=== PATIENT | male | born 1960 | race African-American/Black ===

== ENCOUNTER → 2016-11-06 | Outpatient (CLI) | payer MEDICARE, OTHER | LOC: RAD 07:59 | PROVIDERS: ATTEND Internal Medicine Nephrology | DX: R91.8 Other nonspecific abnormal finding of lung field (principal) | CPT/HCPCS: 71260; 82565 ==

== ENCOUNTER 2017-02-25 20:37 | Emergency (ER) | payer MEDICARE, OTHER ==
--- NOTE | 2017-02-25 23:03 | RADIOLOGY REPORT (SQ) ---
EXAM DESCRIPTION: HAND RIGHT 3 VIEWS COMPLETED DATE/TIME: 02/25/2017 10:51 pm REASON FOR STUDY: laceration COMPARISON: None. EXAM PARAMETERS: NUMBER OF VIEWS: Three views. TECHNIQUE: AP, lateral and oblique radiographic images acquired of the right hand. LIMITATIONS: None. FINDINGS: MINERALIZATION: Normal. BONES: No acute fracture or dislocation. No worrisome bone lesions. JOINTS: No effusions. SOFT TISSUES: No soft tissue swelling. No foreign body. OTHER: No other significant finding. IMPRESSION: NEGATIVE STUDY OF THE RIGHT HAND. NO RADIOGRAPHIC EVIDENCE OF ACUTE INJURY. TECHNICAL DOCUMENTATION: JOB ID: [id number] [employer]- All Rights Reserved
[2017-02-25] MEDS ORDERED: LIDOCAINE 1% INJ-PF (10 MG/ML) 30 ML SDV INJ ONE (23:21)
--- NOTE | 2017-02-25 23:22 | ER Document Report ---
ED Wound - General Chief Complaint: Laceration Stated Complaint: LACERATION TO RIGHT INDEX FINGER Time Seen by Provider: 02/25/17 23:09 Mode of Arrival: Ambulatory Information source: Patient TRAVEL OUTSIDE OF THE [place] IN LAST 30 DAYS: No - HPI Patient complains to provider of: Laceration Occurred: Just prior to arrival Onset/Duration: Sudden Quality of pain: Achy Severity: Mild Pain Level: 2 Context: Injury Skin Color: Normal Capillary refill: < 3 seconds Sensations intact: Yes Distal pulses present: Yes Associated Symptoms: None Notes: Patient is a 56-year-old male who presents to the emergency room complaining of laceration to the dorsal surface of his right second finger that occurred just prior to arrival, states he was washing dishes when a glass broke while in his hand causing the injury, patient reports his last tetanus shot was sometime in the fall 2015, he denies pain or injury elsewhere - Related Data Allergies/Adverse Reactions: ciprofloxacin [From Cipro] Allergy (Severe, Verified 02/25/17 20:42) Anaphylaxis Past Medical History - General Information source: Patient - Social History Smoking Status: Never Smoker Chew tobacco use (# tins/day): No Frequency of alcohol use: None Drug Abuse: None Family History: Reviewed & Not Pertinent Patient has suicidal ideation: No Patient has homicidal ideation: No - Past Medical History Cardiac Medical History: Reports: Hx Hypertension Denies: Hx Atrial Fibrillation, Hx Coronary Artery Disease, Hx Heart Attack Pulmonary Medical History: Denies: Hx Asthma, Hx Bronchitis, Hx COPD, Hx Pneumonia Neurological Medical History: Denies: Hx Cerebrovascular Accident, Hx Seizures Endocrine Medical History: Reports: Hx Hypothyroidism Renal/ Medical History: Reports: Hx End Stage Renal Disease. Denies: Hx Peritoneal Dialysis Malignancy Medical History: Reports Hx Renal (Kidney) Cancer - right side - cleared from cancer after nephrectomy Musculoskeltal Medical History: Reports Hx Arthritis - KNEES Traumatic Medical History: Reports: Hx Fractures Past Surgical History: Reports: Hx Kidney (Renal Surgery) - right nephrectomy, Hx Orthopedic Surgery - ankle - Immunizations Immunizations up to date: Yes Hx Diphtheria, Pertussis, Tetanus Vaccination: Yes Review of Systems - Review of Systems Constitutional: No symptoms reported EENT: No symptoms reported Cardiovascular: No symptoms reported Respiratory: No symptoms reported Gastrointestinal: No symptoms reported Genitourinary: No symptoms reported Male Genitourinary: No symptoms reported Musculoskeletal: No symptoms reported Skin: See HPI Hematologic/Lymphatic: No symptoms reported Neurological/Psychological: No symptoms reported -: Yes All other systems reviewed and negative Physical Exam - Vital signs Vitals: Temp Pulse Resp BP Pulse Ox 97.9 F 73 18 167/114 H 100 02/25/17 20:43 02/25/17 20:43 02/25/17 20:43 02/25/17 20:43 02/25/17 20:43 - Notes Notes: - General General appearance: Appears well, Alert In distress: None - HEENT Head: Normocephalic, Atraumatic Eyes: Normal Conjunctiva: Normal Extraocular movements intact: Yes Eyelashes: Normal Pupils: PERRL - Respiratory Respiratory status: No respiratory distress - Cardiovascular Rhythm: Regular - Abdominal Inspection: Normal - Back Back: Normal - Extremities General upper extremity: Dorsal surface of right second finger has a skin flap measuring 1 cm x 1 cm just distal to the MCP, distal sensation and motor is intact, patient has full flexion and extension, capillary refill is less than 3 seconds General lower extremity: Normal inspection - Neurological Neuro grossly intact: Yes Orientation: AAOx4 [place] Coma Scale Eye Opening: Spontaneous [place] Coma Scale Verbal: Oriented [place] Coma Scale Motor: Obeys Commands [place] Coma Scale Total: 15 - Psychological Associated symptoms: Normal affect, Normal mood - Skin Skin Temperature: Warm Skin Moisture: Dry Skin Color: Normal Course - Re-evaluation Re-evalutation: 02/26/17 00:00 Patient's wound was repaired using sutures, he was started on prophylactic antibiotics and given wound care instructions as well as instructions for follow -up, advised to return if any additional concerns, patient acknowledges understanding and agreement with this plan - Vital Signs Vital signs: Temp Pulse Resp BP Pulse Ox 97.4 F 62 18 185/123 H 100 02/25/17 23:53 02/25/17 23:53 02/25/17 23:53 02/25/17 23:53 02/25/17 23:53 Procedures - Laceration/Wound Repair Right Hand 2nd digit Time completed: 00:01 Wound length (cm): 2 Wound's Depth, Shape: Flap Laceration pre-procedure: Sterile PPE donned, Chloraprep applied, Sterile drapes applied Anesthetic type: 1% Lidocaine Volume Anesthetic (mLs): 2 Wound explored: Clean Irrigated w/ Saline (mLs): 400 Wound Repaired With: Sutures Suture Size/Type: 5:0, Nylon Number of Sutures: 4 Layer Closure?: No Post-procedure wound care: Sterile dressing applied Post-procedure NV exam normal: Yes Complications: No Hands back picture: 1 - 2 cm laceration Discharge - Discharge Clinical Impression: Finger laceration Qualifiers: Encounter type: initial encounter Finger: index finger Damage to nail status: without damage Foreign body presence: with foreign body Laterality: right Qualified Code(s): S61.220A - Laceration with foreign body of right index finger without damage to nail, initial encounter Condition: Stable Disposition: HOME, SELF-CARE Instructions: Antibiotic Ointment Protection ([facility]), Laceration Care ([facility]), Oral Narcotic Medication ([facility]), Prophylactic Antibiotic ([facility]), Soap Cleansing ( [facility]) Additional Instructions: Follow up with your primary care provider in 2-3 days for wound check. Keep wound clean and covered with antibiotic ointment and a clean dressing. Gently rinse with warm water and soap twice daily. Sutures to be removed in 7-10 days. Return to the emergency room immediately if symptoms worsen or any additional concerns. Prescriptions: Cephalexin Monohydrate [Keflex 500 mg Capsule] 500 mg PO BID #20 capsule
[2017-02-25] MEDS ORDERED: CEPHALEXIN 500 MG CAPSULE PO ONE (23:42)
[2017-02-25 23:55] VITALS: BP 185/123
== END 2017-02-25 23:53 | disposition home or self-care (01) ==
LOC: ER 20:37
PROC: 0HQFXZZ Repair Right Hand Skin, External Approach (ICD-10-PCS; principal; 2017-02-25)
DX: S61.220A Laceration with foreign body of right index finger without damage to nail, initial encounter (principal); W25.XXXA Contact with sharp glass, initial encounter; Y93.G1 Activity, food preparation and clean up; Y92.009 Unspecified place in unspecified non-institutional (private) residence as the place of occurrence of the external cause; I10 Essential (primary) hypertension; Z88.1 Allergy status to other antibiotic agents; Z90.5 Acquired absence of kidney; Z85.528 Personal history of other malignant neoplasm of kidney
CPT/HCPCS: 99283; 73130; 12001; A9270; J3490

== ENCOUNTER 2017-03-04 11:47 | Emergency (ER) | payer MEDICARE, OTHER ==
[2017-03-04 11:52] VITALS: BP 146/107
--- NOTE | 2017-03-04 12:02 | ER Document Report ---
HPI - HPI Patient complains to provider of: suture removal Onset: Last week Severity: Mild Pain Level: 1 Context: Patient had stitches placed to right index finger 1 week ago and is here for removal. Denies any problems with the wound site. Associated Symptoms: None Exacerbated by: Movement Relieved by: Denies - ROS ROS below otherwise negative: Yes Systems Reviewed and Negative: Yes All other systems reviewed and negative - CONSTITUTIONAL Constitutional: DENIES: Fever - EENT EENT: DENIES: Congestion - NEURO Neurology: DENIES: Headache - CARDIOVASCULAR Cardiovascular: DENIES: Chest pain - RESPIRATORY Respiratory: DENIES: Trouble Breathing - GASTROINTESTINAL Gastrointestinal: DENIES: Abdominal Pain - MUSCULOSKELETAL Musculoskeletal: REPORTS: Extremity pain - mild pain to right index site - DERM Skin Color: Normal Past Medical History - General Information source: Patient - Social History Smoking Status: Never Smoker Frequency of alcohol use: None Drug Abuse: None Lives with: Family Family History: Reviewed & Not Pertinent Patient has suicidal ideation: No Patient has homicidal ideation: No - Past Medical History Cardiac Medical History: Reports: Hx Hypertension Endocrine Medical History: Reports: Hx Hypothyroidism Renal/ Medical History: Reports: Hx End Stage Renal Disease Malignancy Medical History: Reports Hx Renal (Kidney) Cancer - right side - cleared from cancer after nephrectomy Musculoskeltal Medical History: Reports Hx Arthritis - KNEES Traumatic Medical History: Reports: Hx Fractures Past Surgical History: Reports: Hx Kidney (Renal Surgery) - right nephrectomy, Hx Orthopedic Surgery - ankle - Immunizations Immunizations up to date: Yes Hx Diphtheria, Pertussis, Tetanus Vaccination: Yes Vertical Provider Document - CONSTITUTIONAL Agree With Documented VS: Yes Exam Limitations: No Limitations General Appearance: WD/WN, No Apparent Distress - INFECTION CONTROL TRAVEL OUTSIDE OF THE [place] IN LAST 30 DAYS: No - HEENT HEENT: Atraumatic, Normocephalic - RESPIRATORY Respiratory: Breath Sounds Normal, No Respiratory Distress O2 Sat by Pulse Oximetry: 98 - CARDIOVASCULAR Cardiovascular: Regular Rate, Regular Rhythm - MUSCULOSKELETAL/EXTREMETIES Musculoskeletal/Extremeties: MAEW, No Edema - NEURO Level of Consciousness: Awake, Alert, Appropriate - DERM Integumentary: Warm, Dry, Laceration - No signs and symptoms of infection noted to repair laceration site to right index finger Course - Re-evaluation Re-evalutation: 03/04/17 12:04 4 sutures removed without difficulty from right index finger. Patient tolerated procedure well - Vital Signs Vital signs: Temp Pulse Resp BP Pulse Ox 98.4 F 74 14 146/107 H 98 03/04/17 11:49 03/04/17 11:49 03/04/17 11:49 03/04/17 11:49 03/04/17 11:49 Discharge - Discharge Clinical Impression: Visit for suture removal Condition: Good Disposition: HOME, SELF-CARE Additional Instructions: Keep area clean and dry Follow-up with your primary care physician or return if any problems
== END 2017-03-04 12:10 | disposition home or self-care (01) ==
LOC: ER 11:47
DX: Z48.02 Encounter for removal of sutures (principal)

== ENCOUNTER 2017-08-03 06:52 | Emergency (ER) | payer MEDICARE, OTHER ==
[2017-08-03 07:30] LABS: PROTHROMBIN TIME 14.1 SEC (11.4-15.4)
[2017-08-03 07:32] LABS: ABSOLUTE LYMPHOCYTES (AUTO) 0.4 10^3/uL (0.5-4.7); ABSOLUTE MONOCYTES (AUTO) 1.1 10^3/uL (0.1-1.4); ABSOLUTE NEUT (AUTO) 5.4 10^3/uL (1.7-8.2); BASOPHILS % (AUTO) 0.7 % (0-2); EOSINOPHILS % (AUTO) 0.1 % (0-6); HEMATOCRIT 30.9 % (37.9-51.0); HEMOGLOBIN 10.7 g/dL (13.5-17.0); HGB HCT DIFFERENCE 1.2; LYMPHOCYTES % (AUTO) 5.7 % (13-45); MEAN CORPUSCULAR HEMOGLOBIN 33.5 pg (27.0-33.4); MEAN CORPUSCULAR HGB CONC 34.5 g/dL (32.0-36.0); MEAN CORPUSCULAR VOLUME 97 fl (80-97); MONOCYTES % (AUTO) 15.2 % (3-13); RED BLOOD COUNT 3.18 10^6/uL (4.35-5.55); SEGMENTED NEUTROPHILS % (AUTO) 78.3 % (42-78); WHITE BLOOD COUNT 6.9 10^3/uL (4.0-10.5)
[2017-08-03 07:42] LABS: ALANINE AMINOTRANSFERASE 48 U/L (21-72); ALBUMIN 4.3 g/dL (3.5-5.0); ALKALINE PHOSPHATASE 56 U/L (38-126); ANION GAP 18 (5-19); ASPARTATE AMINO TRANSFERASE 67 U/L (17-59); BILIRUBIN,DIRECT 0.7 mg/dL (0.0-0.4); BILIRUBIN,TOTAL 0.9 mg/dL (0.2-1.3); BLOOD UREA NITROGEN 32 mg/dL (7-20); CALCIUM 9.9 mg/dL (8.4-10.2); CARBON DIOXIDE 23 mmol/L (22-30); CHLORIDE 98 mmol/L (98-107); CREATININE RESULT 11.19 mg/dL (0.52-1.25); GLUCOSE 102 mg/dL (75-110); SODIUM 138.7 mmol/L (137-145); TOTAL PROTEIN 6.5 g/dL (6.3-8.2)
[2017-08-03 07:51] LABS: VENOUS BLOOD HCO3 26.3 mmol/L (20-32); VENOUS BLOOD PH 7.48 (7.30-7.42)
--- NOTE | 2017-08-03 08:02 | ER Document Report ---
ED General - General Mode of Arrival: Ambulatory Information source: Patient, Emergency Med Personnel TRAVEL OUTSIDE OF THE [place] IN LAST 30 DAYS: No - HPI Onset: Other - x3 weeks <MAYRA LAYTON - Last Filed: 08/03/17 10:11> <MARY DE LEÓN - Last Filed: 08/03/17 11:14> - General Chief Complaint: Weakness Stated Complaint: GENERAL WEAKNESS Time Seen by Provider: 08/03/17 07:55 Notes: Patient is a 57-year-old male who presents to the emergency department today with complaints of flu-like symptoms including a cough, nasal congestion, feelings of being hot and cold, nausea and vomiting. Patient states he just recently returned from visiting family in [place] for 3 weeks. Patient has a history of renal cancer status post right sided nephrectomy. Patient states he does not remember how he got to his dialysis appointment today and he states he only vaguely remembers the EMS transport from dialysis to here. (MAYRA LAYTON) - Related Data Allergies/Adverse Reactions: ciprofloxacin [From Cipro] Allergy (Severe, Verified 02/25/17 20:42) Anaphylaxis Past Medical History - General Information source: Patient - Social History Smoking Status: Unknown if Ever Smoked Cigarette use (# per day): No Frequency of alcohol use: None Drug Abuse: None Lives with: Family Family History: Reviewed & Not Pertinent Patient has suicidal ideation: No Patient has homicidal ideation: No - Past Medical History Cardiac Medical History: Reports: Hx Hypertension Endocrine Medical History: Reports: Hx Hypothyroidism Renal/ Medical History: Reports: Hx End Stage Renal Disease Malignancy Medical History: Reports Hx Renal (Kidney) Cancer - right side - cleared from cancer after nephrectomy Musculoskeltal Medical History: Reports Hx Arthritis - KNEES Traumatic Medical History: Reports: Hx Fractures Past Surgical History: Reports: Hx Kidney (Renal Surgery) - right nephrectomy, Hx Orthopedic Surgery - ankle - Immunizations Immunizations up to date: Yes Hx Diphtheria, Pertussis, Tetanus Vaccination: Yes <MAYRA LAYTON - Last Filed: 08/03/17 10:11> Review of Systems - Review of Systems Constitutional: See HPI, Chills, Fever EENT: See HPI, Nose congestion Cardiovascular: No symptoms reported Respiratory: See HPI, Cough Gastrointestinal: See HPI, Nausea, Vomiting Genitourinary: No symptoms reported Male Genitourinary: No symptoms reported Musculoskeletal: No symptoms reported Skin: No symptoms reported Hematologic/Lymphatic: No symptoms reported Neurological/Psychological: No symptoms reported -: Yes All other systems reviewed and negative <KINJALMAYRA - Last Filed: 08/03/17 10:11> Physical Exam <KINJALMAYRA - Last Filed: 08/03/17 10:11> <MARY DE LEÓN - Last Filed: 08/03/17 11:14> - Vital signs Vitals: Resp BP Pulse Ox 14 144/107 H 98 08/03/17 07:08 08/03/17 07:08 08/03/17 07:08 - Notes Notes: Physical Exam: General: Alert, appears well. HEENT: Normocephalic. Atraumatic. PERRL. Extraocular movements intact. Oropharynx clear. Dry mucous membranes. Tongue is coated. Neck: Supple. Non-tender. Respiratory: No respiratory distress. Coarse breath sounds on the left consistent with extensive smoking history. Cardiovascular: Regular rate and rhythm. Abdominal: Normal Inspection. Non-tender. No distension. Normal Bowel Sounds. Back: Non-tender. No deformity or step off. Extremities: Moves all four extremities. Upper extremities: Normal inspection. Normal ROM. Lower extremities: Normal inspection. No edema. Normal ROM. Neurological: Normal cognition. AAOx4. Normal speech. Psychological: Normal affect. Normal Mood. Skin: Warm. Dry. Normal color. (MAYRA LAYTON) Course - Laboratory Result Diagrams: 08/03/17 07:10 08/03/17 07:10 <MAYRA LAYTON - Last Filed: 08/03/17 10:11> - Laboratory Result Diagrams: 08/03/17 07:10 08/03/17 07:10 - EKG Interpretation by [facility] EKG shows normal: Sinus rhythm, [place], QRS Complexes, ST-T Waves. abnormal: Intervals - Prolonged QT interval Voltage: Consistant with LVH When compared to previous EKG there are: No significant change <MARY DE LEÓN - Last Filed: 08/03/17 11:14> - Re-evaluation Re-evalutation: 08/03/17 11:09 The patient was supposed to have dialysis today due to the holiday scheduling. His last dialysis was Friday 2 days ago. He will be able to go back to dialysis on Friday. As he makes plenty of urine and does not get into congestive heart failure, there is no concern about him going 4 days between treatments. (MARY DE LEÓN) - Vital Signs Vital signs: Temp Pulse Resp BP Pulse Ox 99.8 F 18 148/94 H 98 08/03/17 10:03 08/03/17 10:01 08/03/17 10:01 08/03/17 10:01 - Laboratory Laboratory results interpreted by me: 08/03/17 08/03/17 08/03/17 07:10 07:10 07:25 RBC 3.18 L Hgb 10.7 L Hct 30.9 L MCH 33.5 H Plt Count 137 L Seg Neutrophils % 78.3 H Lymphocytes % 5.7 L Monocytes % 15.2 H Absolute Lymphocytes 0.4 L VBG pH 7.48 H BUN 32 H Creatinine 11.19 H Est GFR ( Amer) 6 L Est GFR (Non-Af Amer) 5 L Direct Bilirubin 0.7 H AST 67 H Urine Protein Urine Blood Urine Nitrite Ur Leukocyte Esterase Urine Ascorbic Acid 08/03/17 08:10 RBC Hgb Hct MCH Plt Count Seg Neutrophils % Lymphocytes % Monocytes % Absolute Lymphocytes VBG pH BUN Creatinine Est GFR ( Amer) Est GFR (Non-Af Amer) Direct Bilirubin AST Urine Protein 100 H Urine Blood MODERATE H Urine Nitrite POSITIVE H Ur Leukocyte Esterase TRACE H Urine Ascorbic Acid 20 H Discharge <MAYRA LAYTON - Last Filed: 08/03/17 10:11> <MARY DE LEÓN - Last Filed: 08/03/17 11:14> - Discharge Clinical Impression: Viral upper respiratory tract infection with cough, Nausea, vomiting and diarrhea, ESRD (end stage renal disease) Condition: Stable Disposition: HOME, SELF-CARE Additional Instructions: Upper Respiratory Illness You have a viral infection of the respiratory passages -- a "cold." This common infection causes nasal congestion, drainage, and often sore throat and cough. It is caused by a virus and is highly contagious. The disease usually lasts a week or more, though the worst symptoms are usually over in 3 or 4 days. There is no "cure" for the viral infection -- it must run its course. If there is a complication, such as bacterial infection in the nose, sinuses, middle ear, or bronchial tubes, antibiotics may be required, but antibiotics won 't affect the virus. If you smoke, you should STOP!! Drink plenty of fluids. A humidifier may help. An expectorant medication or decongestant may make you more comfortable. Use acetaminophen or ibuprofen for fever or aches. See the doctor if fever persists over two or three days, if there is any significant worsening of your symptoms, or if you simply fail to improve as expected. Gastroenteritis You most likely have gastroenteritis. This is an irritation of the stomach and intestinal tract. It's usually caused by a virus, but can also be caused by bacteria, toxins that cause food poisoning, or excessive alcohol intake. Symptoms may include fever, painful abdominal cramps, nausea, vomiting , and diarrhea. Start with small amounts (two to six ounces) of clear liquids (soft drinks , herb teas, broth, etc). Try to take fluids frequently even if you are vomiting, to prevent dehydration. When liquids are being consumed successfully , advance to small amounts of bland food (mashed potato, toast) for 6 - 12 hours. Gastroenteritis rarely requires medication. It goes away by itself. Use good handwashing so you don't spread germs. Wash underwear in very hot water. If symptoms are severe, talk to the doctor. Call your physician if blood appears in your vomitus or stool, if vomiting lasts longer than 24 hours, if the abdominal pain worsens or becomes localized to one area, or if you develop high fever. Urinary Tract Infection Your evaluation indicates that you have a urinary tract infection. This is due to germs growing in the bladder. This is a common problem. This infection usually responds quickly to antibiotics. Your antibiotic should be taken exactly as prescribed. Drink plenty of fluids -- three to four quarts a day. Occasionally, a bladder anesthetic will be prescribed to help stop the feeling of urgency until the antibiotic has a chance to clear the infection. This may cause your urine to be dark orange. Certain urine infections require a culture. If the doctor obtained a culture, the results will be back in two days. You should call to see if a change in treatment is needed. A repeat urinalysis after you finish treatment is often recommended. The physician will let you know if further testing is required. Call the doctor if you develop fever, chills, flank pain, inability to urinate, or blood in the urine. //////////////////////////////////////////////////////////////////////////////// //////////////////////////////////////////////////////////////////////////////// ////////////////// Take medications as prescribed. Get plenty of rest. Try Robitussin-DM to help suppress your cough. Follow-up with your doctor in the next few days if not improving. RETURN TO THE EMERGENCY ROOM IF ANY NEW OR WORSENING SYMPTOMS. Prescriptions: Sulfamethoxazole/Trimethoprim [Septra-Ds 800-160 mg Tablet] 1 tab PO BID #10 tablet Scribe Attestation: 08/03/17 11:08 I personally performed the services described in the documentation, reviewed and edited the documentation which was dictated to the scribe in my presence, and it accurately records my words and actions. (MARY DE LEÓN) Scribe Documentation - Scribe Written by Sara:: Sara Acosta, 08/03/2017 0855 acting as scribe for :: Raffi <MAYRA LAYTON - Last Filed: 08/03/17 10:11>
[2017-08-03] MEDS ORDERED: NORMAL SALINE IV ONE (08:04)
[2017-08-03 08:39] LABS: APPEARANCE,URINE SLIGHTLY-CLOUDY; BILIRUBIN,URINE NEGATIVE (NEGATIVE); GLUCOSE, URINE NEGATIVE (NEGATIVE); KETONES,URINE NEGATIVE (NEGATIVE); LEUKOCYTE ESTERASE,URINE TRACE (NEGATIVE); NITRITE,URINE POSITIVE (NEGATIVE); PROTEIN,URINE 100 mg/dL (NEGATIVE); URINE SPECIFIC GRAVITY 1.013; UROBILINOGEN,URINE NEGATIVE mg/dL (<2.0)
--- NOTE | 2017-08-03 08:40 | EKG REPORT ---
SEVERITY:- ABNORMAL ECG - SINUS RHYTHM PROBABLE LVH WITH SECONDARY REPOL ABNRM BORDERLINE PROLONGED QT INTERVAL : Confirmed by: Costa Pryor MD 03-Aug-2017 08:40:11
[2017-08-03] MEDS ORDERED: SULFAMETHOXAZOLE/TRIMETHOPRIM 800-160 MG TABLET PO ONE (09:54)
[2017-08-03 11:16] VITALS: BP 143/92
== END 2017-08-03 11:24 | disposition home or self-care (01) ==
LOC: ER 06:52
DX: J06.9 Acute upper respiratory infection, unspecified (principal); R05 Cough; R11.2 Nausea with vomiting, unspecified; R19.7 Diarrhea, unspecified; N18.6 End stage renal disease; R53.1 Weakness; R09.81 Nasal congestion; Z85.528 Personal history of other malignant neoplasm of kidney; Z90.5 Acquired absence of kidney; Z99.2 Dependence on renal dialysis
CPT/HCPCS: 93005; 99285; 96360; 36415; 87040; 87045; 87086; 89055; 87205; 85025; 85610; 82272; 87088; 80053; 81001; 87493; 82803; 83605; 87804; 93010; A9270; J7030

== ENCOUNTER → 2018-02-26 | Outpatient (CLI) | payer MEDICARE, OTHER ==
[2018-02-26 08:57] LABS: APPEARANCE,URINE CLEAR; BILIRUBIN,URINE NEGATIVE (NEGATIVE); COLOR,URINE YELLOW; GLUCOSE, URINE NEGATIVE (NEGATIVE); KETONES,URINE NEGATIVE (NEGATIVE); LEUKOCYTE ESTERASE,URINE NEGATIVE (NEGATIVE); NITRITE,URINE NEGATIVE (NEGATIVE); PROTEIN,URINE NEGATIVE (NEGATIVE); UROBILINOGEN,URINE NEGATIVE mg/dL (<2.0)
[2018-02-26 08:58] LABS: HEMATOCRIT 38.6 % (37.9-51.0); HEMOGLOBIN 13.1 g/dL (13.5-17.0); MEAN CORPUSCULAR HEMOGLOBIN 32.4 pg (27.0-33.4); MEAN CORPUSCULAR VOLUME 95 fl (80-97); PLATELET COUNT 198 10^3/uL (150-450); RED BLOOD COUNT 4.05 10^6/uL (4.35-5.55); RED CELL DISTRIBUTION WIDTH 13.9 % (11.5-14.0); WHITE BLOOD COUNT 5.4 10^3/uL (4.0-10.5)
[2018-02-26 09:23] LABS: ANION GAP 11 (5-19); BLOOD UREA NITROGEN 20 mg/dL (7-20); CARBON DIOXIDE 27 mmol/L (22-30); CHLORIDE 108 mmol/L (98-107); GLUCOSE 162 mg/dL (75-110); PHOSPHORUS 3.5 mg/dL (2.5-4.5); POTASSIUM 4.2 mmol/L (3.6-5.0); SODIUM 146.4 mmol/L (137-145)
[2018-02-26 09:24] LABS: ABSOLUTE LYMPHOCYTES# (MANUAL) 0.3 10^3/uL (0.5-4.7); ABSOLUTE MONOCYTES # (MANUAL) 0.2 10^3/uL (0.1-1.4); ABSOLUTE NEUTROPHILS# (MANUAL) 4.7 10^3/uL (1.7-8.2); BAND NEUTROPHILS % (MANUAL) 4 % (3-5); BASOPHILS % (MANUAL) 1 % (0-2); EOSINOPHILS % (MANUAL) 3 % (0-6); LYMPHOCYTES % (MANUAL) 5 % (13-45); MONOCYTES % (MANUAL) 4 % (3-13); PLATELET COMMENT ADEQUATE; RBC MORPHOLOGY COMMENT NORMO-CYTIC/CHROMIC; SEGMENTED NEUTROPHILS % (MAN) 83 % (42-78); TOTAL CELLS COUNTED 100; TOXIC GRANULATION SLIGHT
[2018-02-28 10:16] LABS: TACROLIMUS (FK506) 4.6 ng/mL (2.0-20.0)
== END ==
LOC: LAB 08:21
PROVIDERS: ATTEND Surgery
DX: N18.9 Chronic kidney disease, unspecified (principal); Z94.0 Kidney transplant status
CPT/HCPCS: 36415; 80048; 80197; 81001; 83735; 84100; 85025; 87799

== ENCOUNTER → 2018-04-22 | Outpatient (CLI) | payer MEDICARE, OTHER ==
[2018-04-22 09:10] LABS: APPEARANCE,URINE CLEAR; BILIRUBIN,URINE NEGATIVE (NEGATIVE); COLOR,URINE STRAW; GLUCOSE, URINE NEGATIVE (NEGATIVE); KETONES,URINE NEGATIVE (NEGATIVE); LEUKOCYTE ESTERASE,URINE TRACE (NEGATIVE); NITRITE,URINE NEGATIVE (NEGATIVE); PROTEIN,URINE NEGATIVE (NEGATIVE); URINE SPECIFIC GRAVITY 1.009; UROBILINOGEN,URINE NEGATIVE mg/dL (<2.0)
[2018-04-22 09:29] LABS: HEMATOCRIT 33.3 % (37.9-51.0); HEMOGLOBIN 11.3 g/dL (13.5-17.0); MEAN CORPUSCULAR HEMOGLOBIN 33.1 pg (27.0-33.4); MEAN CORPUSCULAR VOLUME 97 fl (80-97); PLATELET COUNT 165 10^3/uL (150-450); RED BLOOD COUNT 3.43 10^6/uL (4.35-5.55); RED CELL DISTRIBUTION WIDTH 15.7 % (11.5-14.0); WHITE BLOOD COUNT 5.2 10^3/uL (4.0-10.5)
[2018-04-22 09:44] LABS: ANION GAP 5 (5-19); BLOOD UREA NITROGEN 21 mg/dL (7-20); CALCIUM 9.3 mg/dL (8.4-10.2); CARBON DIOXIDE 30 mmol/L (22-30); CHLORIDE 109 mmol/L (98-107); GLUCOSE 88 mg/dL (75-110); PHOSPHORUS 2.8 mg/dL (2.5-4.5); POTASSIUM 3.9 mmol/L (3.6-5.0); SODIUM 143.5 mmol/L (137-145)
[2018-04-22 09:55] LABS: ABSOLUTE LYMPHOCYTES# (MANUAL) 0.2 10^3/uL (0.5-4.7); ABSOLUTE MONOCYTES # (MANUAL) 0.1 10^3/uL (0.1-1.4); ABSOLUTE NEUTROPHILS# (MANUAL) 4.8 10^3/uL (1.7-8.2); BASOPHILS % (MANUAL) 0 % (0-2); EOSINOPHILS % (MANUAL) 2 % (0-6); LYMPHOCYTES % (MANUAL) 3 % (13-45); MONOCYTES % (MANUAL) 2 % (3-13); SEGMENTED NEUTROPHILS % (MAN) 93 % (42-78); TOTAL CELLS COUNTED 100
[2018-04-22 09:57] LABS: ANISOCYTOSIS SLIGHT; OVALOCYTES SLIGHT; POIKILOCYTOSIS SLIGHT
[2018-04-22 09:58] LABS: PLATELET COMMENT ADEQUATE; PLATELET LARGE PRESENT
== END ==
LOC: LAB 08:59
PROVIDERS: ATTEND Surgery
DX: N18.9 Chronic kidney disease, unspecified (principal); Z94.0 Kidney transplant status
CPT/HCPCS: 36415; 80048; 80197; 81001; 83735; 84100; 85025; 87799

== ENCOUNTER 2018-05-14 19:51 | Emergency (ER) | payer MEDICARE, OTHER ==
[2018-05-14] MEDS ORDERED: RINGERS SOLUTION,LACTATED 1,000 ML IV ONE (20:49)
[2018-05-14 21:16] LABS: HEMATOCRIT 34.9 % (37.9-51.0); HEMOGLOBIN 12.2 g/dL (13.5-17.0); MEAN CORPUSCULAR HGB CONC 34.8 g/dL (32.0-36.0); MEAN CORPUSCULAR VOLUME 98 fl (80-97); PLATELET COUNT 178 10^3/uL (150-450); RED BLOOD COUNT 3.58 10^6/uL (4.35-5.55); RED CELL DISTRIBUTION WIDTH 14.8 % (11.5-14.0); WHITE BLOOD COUNT 5.6 10^3/uL (4.0-10.5)
[2018-05-14 21:27] LABS: ALANINE AMINOTRANSFERASE 20 U/L (21-72); ALBUMIN 4.4 g/dL (3.5-5.0); ALKALINE PHOSPHATASE 67 U/L (38-126); ANION GAP 9 (5-19); ASPARTATE AMINO TRANSFERASE 41 U/L (17-59); BILIRUBIN,DIRECT 0.4 mg/dL (0.0-0.4); BILIRUBIN,TOTAL 0.7 mg/dL (0.2-1.3); BLOOD UREA NITROGEN 16 mg/dL (7-20); CALCIUM 9.7 mg/dL (8.4-10.2); CARBON DIOXIDE 27 mmol/L (22-30); CHLORIDE 106 mmol/L (98-107); GLUCOSE 105 mg/dL (75-110); POTASSIUM 3.6 mmol/L (3.6-5.0); SODIUM 141.7 mmol/L (137-145); TOTAL PROTEIN 8.4 g/dL (6.3-8.2)
[2018-05-14 21:36] LABS: ABSOLUTE LYMPHOCYTES# (MANUAL) 0.1 10^3/uL (0.5-4.7); ABSOLUTE MONOCYTES # (MANUAL) 0.2 10^3/uL (0.1-1.4); ABSOLUTE NEUTROPHILS# (MANUAL) 4.9 10^3/uL (1.7-8.2); BASOPHILS % (MANUAL) 0 % (0-2); EOSINOPHILS % (MANUAL) 6 % (0-6); LYMPHOCYTES % (MANUAL) 1 % (13-45); MONOCYTES % (MANUAL) 4 % (3-13); SEGMENTED NEUTROPHILS % (MAN) 88 % (42-78); TOTAL CELLS COUNTED 100
[2018-05-14 21:38] LABS: ANISOCYTOSIS SLIGHT; PLATELET COMMENT ADEQUATE
[2018-05-14] MEDS ORDERED: ACETAMINOPHEN 325 MG TABLET PO ONE (22:12)
[2018-05-14 22:33] LABS: A TYPE INFLUENZA AG NEGATIVE (NEGATIVE); B INFLUENZA AG NEGATIVE (NEGATIVE)
--- NOTE | 2018-05-14 22:33 | RADIOLOGY REPORT (SQ) ---
EXAM DESCRIPTION: XR CHEST 1 VIEW COMPLETED DATE/TME: 05/14/2018 20:48 CLINICAL HISTORY: fever COMPARISON: None FINDINGS: Cardiac silhouette is within normal limits. Aorta is tortuous. EKG leads project over the chest. There is no focal parenchymal or pleural disease. There is no acute osseous process visualized. IMPRESSION: No evidence of acute cardiopulmonary disease.
[2018-05-14 23:12] LABS: APPEARANCE,URINE CLEAR; BILIRUBIN,URINE NEGATIVE (NEGATIVE); COLOR,URINE YELLOW; GLUCOSE, URINE NEGATIVE (NEGATIVE); KETONES,URINE NEGATIVE (NEGATIVE); LEUKOCYTE ESTERASE,URINE NEGATIVE (NEGATIVE); NITRITE,URINE NEGATIVE (NEGATIVE); PROTEIN,URINE >=500 mg/dL (NEGATIVE); URINE SPECIFIC GRAVITY 1.017; UROBILINOGEN,URINE NEGATIVE mg/dL (<2.0)
--- NOTE | 2018-05-14 23:54 | ER Document Report ---
ED General - General Chief Complaint: Pain All Over Stated Complaint: Body aches Time Seen by Provider: 05/14/18 20:45 Notes: Patient is a 57-year-old male with a past medical history of hypertension, chronic kidney disease status post kidney transplant in October 2017 who presents with 3 days of body aches, fatigue, headache, diaphoresis and chills. He has not had a recorded fever at home contrary to triage assessment. Nor does he have acute fever here in the emergency department. He states that he contacted his primary doctor, was referred to the emergency department. States he been trying Tylenol with no significant improvement of his symptoms. Nothing worsened his symptoms. He is uncertain of whether or not he has had sick contacts. He denies a history of similar symptoms in the past. He denies any focal weakness, numbness, confusion diarrhea, but has had some nausea and vomiting. TRAVEL OUTSIDE OF THE [place] IN LAST 30 DAYS: No - Related Data Allergies/Adverse Reactions: ciprofloxacin [From Cipro] Allergy (Severe, Verified 02/25/17 20:42) Anaphylaxis Past Medical History - General Information source: Patient - Social History Smoking Status: Never Smoker Frequency of alcohol use: None Drug Abuse: None Lives with: Alone Family History: Reviewed & Not Pertinent Patient has suicidal ideation: No Patient has homicidal ideation: No - Past Medical History Cardiac Medical History: Reports: Hx Hypertension Denies: Hx Atrial Fibrillation, Hx Coronary Artery Disease, Hx Heart Attack Pulmonary Medical History: Denies: Hx Asthma, Hx Bronchitis, Hx COPD, Hx Pneumonia Neurological Medical History: Denies: Hx Cerebrovascular Accident, Hx Seizures Endocrine Medical History: Reports: Hx Hypothyroidism Renal/ Medical History: Reports: Hx End Stage Renal Disease. Denies: Hx Peritoneal Dialysis Malignancy Medical History: Reports Hx Renal (Kidney) Cancer - right side - cleared from cancer after nephrectomy Musculoskeletal Medical History: Reports Hx Arthritis - KNEES Traumatic Medical History: Reports: Hx Fractures Past Surgical History: Reports: Hx Kidney (Renal Surgery) - right nephrectomy, kidney transplant 10/13/2017, Hx Orthopedic Surgery - ankle - Immunizations Immunizations up to date: Yes Hx Diphtheria, Pertussis, Tetanus Vaccination: Yes Review of Systems - Review of Systems Notes: Constitutional: Negative for fever. HENT: Negative for sore throat. Eyes: Negative for visual changes. Cardiovascular: Negative for chest pain. Respiratory: Negative for shortness of breath. Gastrointestinal: Positive for nausea and vomiting Genitourinary: Negative for dysuria. Musculoskeletal: Negative for back pain. Skin: Negative for rash. Neurological: Positive for headache 10 point ROS negative except as marked above and in HPI. Physical Exam - Vital signs Vitals: Temp Pulse Resp BP Pulse Ox 98.4 F 60 14 144/105 H 97 05/14/18 20:02 05/14/18 20:02 05/14/18 20:02 05/14/18 20:02 05/14/18 20:02 Interpretation: Normal Notes: PHYSICAL EXAMINATION: GENERAL: Well-appearing, well-nourished and in no acute distress. HEAD: Atraumatic, normocephalic. EYES: Pupils equal round and reactive to light, extraocular movements intact, sclera anicteric, conjunctiva are normal. ENT: nares patent, oropharynx clear without exudates. Moderately dry mucous membranes. NECK: Normal range of motion, supple without lymphadenopathy LUNGS: Breath sounds clear to auscultation bilaterally and equal. No wheezes rales or rhonchi. HEART: Regular rate and rhythm without murmurs ABDOMEN: Soft, nontender, normoactive bowel sounds. No guarding, no rebound. No masses appreciated. EXTREMITIES: Normal range of motion, no pitting or edema. No cyanosis. NEUROLOGICAL: Face symmetric. Tongue protrudes midline. Extraocular motions intact. Pupils are 2 mm and equally reactive. Normal speech, normal gait. 5 out of 5 strength in both the distal and proximal upper and lower extremities bilaterally. Sensation is grossly intact throughout. Finger to nose testing normal. Pronator drift normal. PSYCH: Normal mood, normal affect. SKIN: Warm, Dry, normal turgor, no rashes or lesions noted. Course - Re-evaluation Re-evalutation: 05/14/18 23:53 Patient presents with complaints of body aches, headache, general fatigue for the past 2 days. No focal findings on exam. Vitals within normal limits. No leukocytosis or fever. Chest x-ray clear, influenza negative, no focal abdominal pain on examination to suggest an acute intra-abdominal pathology. Patient likewise denies abdominal pain. Patient does complain of a headache. Very low clinical suspicion for an acute meningitis given the absence of fever, leukocytosis, intermittent nature of headache, absence of any neck pain, no meningismus on examination. I do not believe a lumbar puncture is acutely indicated at this point. Urinalysis is pending. Renal ultrasound likewise pending. 05/15/18 00:45 Urinalysis unremarkable. Renal ultrasound unremarkable. Patient symptoms are improved. Vitals remain within normal limits. Repeat exam benign. At this time will discharge with return precautions and follow-up recommendations. Verbal discharge instructions given a the bedside and opportunity for questions given. Medication warnings reviewed. Patient is in agreement with this plan and has verbalized understanding of return precautions and the need for primary care follow-up in the next 24-72 hours. - Vital Signs Vital signs: Temp Pulse Resp BP Pulse Ox 98.4 F 60 20 169/107 H 98 05/14/18 20:02 05/14/18 20:02 05/14/18 22:00 05/14/18 21:59 05/14/18 22:00 - Laboratory Result Diagrams: 05/14/18 20:50 05/14/18 20:50 Laboratory results interpreted by me: 05/14/18 05/14/18 05/14/18 20:50 20:50 22:35 RBC 3.58 L Hgb 12.2 L Hct 34.9 L MCV 98 H MCH 34.0 H RDW 14.8 H Seg Neuts % (Manual) 88 H Lymphocytes % (Manual) 1 L Abs Lymphs (Manual) 0.1 L Creatinine 1.95 H Est GFR ( Amer) 43 L Est GFR (Non-Af Amer) 36 L ALT 20 L Total Protein 8.4 H Urine Protein >=500 H Urine Ascorbic Acid 40 H - Diagnostic Test Radiology reviewed: Image reviewed, Reports reviewed Radiology results interpreted by me: 05/15/18 00:46 Chest x-ray: No acute infiltrate or pneumothorax Discharge - Discharge Clinical Impression: Body aches, Renal transplant, status post Headache Qualifiers: Headache type: unspecified Headache chronicity pattern: acute headache Intractability: not intractable Qualified Code(s): R51 - Headache Condition: Good Disposition: HOME, SELF-CARE Additional Instructions: Your labs, x-rays, flu test, renal ultrasound are all normal today. The exact cause of your symptoms is uncertain but does not appear to be from a life- threatening issue at this time. It may be related to a viral illness. Please contact your general doctor at your earliest ability. Return if you develop a fever greater than 100.4 F, persistent vomiting, worsening pain, or any other symptoms that are worrisome to you Referrals: EMERSON KEARNS, LABORATORY COURIER [Primary Care Provider] - Follow up as needed
--- NOTE | 2018-05-15 00:10 | RADIOLOGY REPORT (SQ) ---
CLINICAL DATA: Right renal transplant TECHNICAL DATA: Grayscale and Doppler ultrasound imaging of the abdomen was performed including imaging of the kidneys and bladder. Comparison: Prior retroperitoneal ultrasound performed on 04/05/[address] abdomen and pelvis performed on 06/16/2014. FINDINGS: The stebbins right kidney is surgically absent. The left kidney measures 6.7 cm in length. There is no hydronephrosis or perinephric fluid collection. No focal renal mass lesion is appreciated. The the pelvic right renal transplant measures 12 cm in length. There is no evidence of hydronephrosis or renal mass lesion. No definite nephrolithiasis or perinephric fluid collection is seen. The bladder is relatively well distended and smooth in contour. No ureteral jets are visualized at this time. There is no free fluid in the abdomen. IMPRESSION: 1. Grossly unremarkable pelvic right renal transplant. 2. Status post right nephrectomy. 3. Small left kidney.
[2018-05-15] MEDS ORDERED: METOCLOPRAMIDE HCL INJ/PF 10 MG/2 ML SDV IV ONE (00:45)
[2018-05-15 01:48] VITALS: BP 160/106
== END 2018-05-15 01:43 | disposition home or self-care (01) ==
LOC: ER 19:51
DX: M79.10 Myalgia, unspecified site (principal); R51 Headache; I12.0 Hypertensive chronic kidney disease with stage 5 chronic kidney disease or end stage renal disease; N18.6 End stage renal disease; Z94.0 Kidney transplant status; Z88.3 Allergy status to other anti-infective agents
CPT/HCPCS: 99284; 36415; 87040; 87086; 85025; 80053; 81001; 80197; 87804; 71045; 76775; A9270; J2765; J7120

== ENCOUNTER → 2018-05-27 | Outpatient (CLI) | payer MEDICARE, OTHER ==
[2018-05-27 08:33] LABS: HEMATOCRIT 33.2 % (37.9-51.0); HEMOGLOBIN 11.5 g/dL (13.5-17.0); MEAN CORPUSCULAR HEMOGLOBIN 33.6 pg (27.0-33.4); MEAN CORPUSCULAR HGB CONC 34.6 g/dL (32.0-36.0); MEAN CORPUSCULAR VOLUME 97 fl (80-97); PLATELET COUNT 138 10^3/uL (150-450); RED BLOOD COUNT 3.42 10^6/uL (4.35-5.55); RED CELL DISTRIBUTION WIDTH 14.3 % (11.5-14.0); WHITE BLOOD COUNT 6.6 10^3/uL (4.0-10.5)
[2018-05-27 08:40] LABS: APPEARANCE,URINE CLEAR; BILIRUBIN,URINE NEGATIVE (NEGATIVE); COLOR,URINE YELLOW; GLUCOSE, URINE NEGATIVE (NEGATIVE); KETONES,URINE NEGATIVE (NEGATIVE); LEUKOCYTE ESTERASE,URINE NEGATIVE (NEGATIVE); NITRITE,URINE NEGATIVE (NEGATIVE); PROTEIN,URINE >=500 mg/dL (NEGATIVE); URINE SPECIFIC GRAVITY 1.016; UROBILINOGEN,URINE NEGATIVE mg/dL (<2.0)
[2018-05-27 08:42] LABS: ANION GAP 7 (5-19); BLOOD UREA NITROGEN 19 mg/dL (7-20); CALCIUM 9.6 mg/dL (8.4-10.2); CARBON DIOXIDE 27 mmol/L (22-30); CHLORIDE 108 mmol/L (98-107); GLUCOSE 103 mg/dL (75-110); PHOSPHORUS 3.1 mg/dL (2.5-4.5); POTASSIUM 4.1 mmol/L (3.6-5.0); SODIUM 141.8 mmol/L (137-145)
[2018-05-27 08:49] LABS: ABSOLUTE LYMPHOCYTES# (MANUAL) 0.3 10^3/uL (0.5-4.7); ABSOLUTE MONOCYTES # (MANUAL) 0.9 10^3/uL (0.1-1.4); BASOPHILS % (MANUAL) 1 % (0-2); EOSINOPHILS % (MANUAL) 5 % (0-6); LYMPHOCYTES % (MANUAL) 4 % (13-45); MONOCYTES % (MANUAL) 14 % (3-13); SEGMENTED NEUTROPHILS % (MAN) 76 % (42-78); TOTAL CELLS COUNTED 100
[2018-05-27 08:50] LABS: ANISOCYTOSIS SLIGHT; PLATELET COMMENT DECREASED
[2018-05-29 03:46] LABS: TACROLIMUS (FK506) 1.9 ng/mL (2.0-20.0)
== END ==
LOC: LAB 08:11
PROVIDERS: ATTEND Surgery
DX: N18.9 Chronic kidney disease, unspecified (principal); Z94.0 Kidney transplant status
CPT/HCPCS: 36415; 80048; 80197; 81001; 83735; 84100; 85025; 87799

== ENCOUNTER → 2018-07-28 | Outpatient (CLI) | payer MEDICARE, OTHER ==
[2018-07-28 08:09] LABS: HEMATOCRIT 28.3 % (37.9-51.0); HEMOGLOBIN 9.4 g/dL (13.5-17.0); MEAN CORPUSCULAR HEMOGLOBIN 32.1 pg (27.0-33.4); MEAN CORPUSCULAR HGB CONC 33.3 g/dL (32.0-36.0); MEAN CORPUSCULAR VOLUME 96 fl (80-97); PLATELET COUNT 141 10^3/uL (150-450); RED BLOOD COUNT 2.94 10^6/uL (4.35-5.55); RED CELL DISTRIBUTION WIDTH 16.3 % (11.5-14.0); WHITE BLOOD COUNT 6.1 10^3/uL (4.0-10.5)
[2018-07-28 08:22] LABS: APPEARANCE,URINE SLIGHTLY-CLOUDY; BILIRUBIN,URINE NEGATIVE (NEGATIVE); COLOR,URINE YELLOW; GLUCOSE, URINE NEGATIVE (NEGATIVE); KETONES,URINE NEGATIVE (NEGATIVE); LEUKOCYTE ESTERASE,URINE NEGATIVE (NEGATIVE); NITRITE,URINE NEGATIVE (NEGATIVE); PROTEIN,URINE >=500 mg/dL (NEGATIVE); URINE SPECIFIC GRAVITY 1.015; UROBILINOGEN,URINE NEGATIVE mg/dL (<2.0)
[2018-07-28 08:27] LABS: ANION GAP 7 (5-19); BLOOD UREA NITROGEN 26 mg/dL (7-20); CALCIUM 8.5 mg/dL (8.4-10.2); CARBON DIOXIDE 29 mmol/L (22-30); CHLORIDE 102 mmol/L (98-107); GLUCOSE 103 mg/dL (75-110); PHOSPHORUS 3.7 mg/dL (2.5-4.5); POTASSIUM 4.2 mmol/L (3.6-5.0); SODIUM 137.8 mmol/L (137-145)
[2018-07-28 08:29] LABS: ABSOLUTE LYMPHOCYTES# (MANUAL) 0.2 10^3/uL (0.5-4.7); ABSOLUTE MONOCYTES # (MANUAL) 0.6 10^3/uL (0.1-1.4); ABSOLUTE NEUTROPHILS# (MANUAL) 5.1 10^3/uL (1.7-8.2); ANISOCYTOSIS 1+; EOSINOPHILS % (MANUAL) 2 % (0-6); LYMPHOCYTES % (MANUAL) 3 % (13-45); MONOCYTES % (MANUAL) 10 % (3-13); NUCLEATED RED BLOOD CELLS 1 /100 WBC (0); OVALOCYTES 1+; PLATELET COMMENT DECREASED; POIKILOCYTOSIS 1+; SEGMENTED NEUTROPHILS % (MAN) 84 % (42-78); TOTAL CELLS COUNTED 100
[2018-07-30 14:02] LABS: TACROLIMUS (FK506) 5.6 ng/mL (2.0-20.0)
== END ==
LOC: LAB 07:47
PROVIDERS: ATTEND Surgery
DX: N18.9 Chronic kidney disease, unspecified (principal); Z94.0 Kidney transplant status
CPT/HCPCS: 36415; 80048; 80197; 81001; 83735; 84100; 85025; 87799

== ENCOUNTER 2019-03-31 10:57 | Emergency (ER) | payer MEDICARE, OTHER ==
--- NOTE | 2019-03-31 11:27 | ER Document Report ---
ED Fever - General Chief Complaint: Fever Stated Complaint: HEADACHE Time Seen by Provider: 03/31/19 11:17 Primary Care Provider: LISA SOLANO MD [Primary Care Provider] - Follow up as needed Information source: Patient TRAVEL OUTSIDE OF THE [place] IN LAST 30 DAYS: No - HPI Notes: Patient states he has had a low-grade fever for several days. He states today while at dialysis his fever spiked to 101 so he sent to the emergency department. He states he did finish the dialysis run. He states he had some sinus congestion and headache for several days. He denies any abdominal pain. No nausea vomiting or diarrhea. He states he has rejected the transplanted kidney that he received last year. He states he still does make urine but has had no dysuria. He states he has had some mild weakness. The headache is mild and bilateral. It is throbbing. Nothing makes it better or worse. It does not radiate. It is mild to moderate in intensity. - Related Data Allergies/Adverse Reactions: ciprofloxacin [From Cipro] Allergy (Severe, Verified 02/25/17 20:42) Anaphylaxis Past Medical History - General Information source: Patient - Social History Smoking Status: Never Smoker Frequency of alcohol use: None Drug Abuse: None Family History: Reviewed & Not Pertinent Patient has suicidal ideation: No Patient has homicidal ideation: No - Past Medical History Cardiac Medical History: Reports: Hx Hypertension Denies: Hx Atrial Fibrillation, Hx Coronary Artery Disease, Hx Heart Attack Pulmonary Medical History: Denies: Hx Asthma, Hx Bronchitis, Hx COPD, Hx Pneumonia Neurological Medical History: Denies: Hx Cerebrovascular Accident, Hx Seizures Endocrine Medical History: Reports: Hx Hypothyroidism Renal/ Medical History: Reports: Hx End Stage Renal Disease, Hx Peritoneal Dialysis Malignancy Medical History: Reports Hx Renal (Kidney) Cancer - right side - cleared from cancer after nephrectomy Musculoskeletal Medical History: Reports Hx Arthritis - KNEES Traumatic Medical History: Reports: Hx Fractures Past Surgical History: Reports: Hx Kidney (Renal Surgery) - right nephrectomy, kidney transplant 10/13/2017, Hx Orthopedic Surgery - ankle - Immunizations Immunizations up to date: Yes Hx Diphtheria, Pertussis, Tetanus Vaccination: Yes Review of Systems - Review of Systems Constitutional: Chills, Fever Respiratory: denies: Cough, Short of breath Gastrointestinal: denies: Diarrhea, Vomiting Musculoskeletal: denies: Joint pain -: Yes All other systems reviewed and negative Physical Exam - Vital signs Vitals: Temp Pulse Resp BP Pulse Ox 98.2 F 67 14 128/83 H 94 03/31/19 11:05 03/31/19 11:05 03/31/19 11:05 03/31/19 11:05 03/31/19 11:05 Interpretation: Normal - General General appearance: Appears well, Alert - HEENT Head: Normocephalic, Atraumatic Eyes: Normal Pupils: PERRL - Respiratory Respiratory status: No respiratory distress Chest status: Nontender Breath sounds: Normal Chest palpation: Normal - Cardiovascular Rhythm: Regular Heart sounds: Normal auscultation Murmur: No - Abdominal Inspection: Normal Distension: No distension Bowel sounds: Normal Tenderness: Nontender Organomegaly: No organomegaly - Back Back: Normal, Nontender - Extremities General upper extremity: Normal inspection, Nontender, Normal color, Normal ROM, Normal temperature General lower extremity: Normal inspection, Nontender, Normal color, Normal ROM, Normal temperature, Normal weight bearing. No: Benjamín's sign - Neurological Neuro grossly intact: Yes Cognition: Normal Orientation: AAOx4 [place] Coma Scale Eye Opening: Spontaneous [place] Coma Scale Verbal: Oriented [place] Coma Scale Motor: Obeys Commands [place] Coma Scale Total: 15 Speech: Normal Motor strength normal: LUE, RUE, LLE, RLE Sensory: Normal - Psychological Associated symptoms: Normal affect, Normal mood - Skin Skin Temperature: Warm Skin Moisture: Dry Skin Color: Normal Course - Re-evaluation Re-evalutation: 03/31/19 12:59 Patient reexamined. Patient resting comfortably in the bed in no distress. Vital signs are unremarkable. Review of laboratories is unremarkable other than the chronically elevated creatinine which is consistent with patient being on dialysis. Patient also has anemia however this is monitored at dialysis with each run. Patient's x-ray shows possible early pneumonia. With his history of transplant and subjective fevers will start antibiotics and patient states that he will call his transplant physician at [facility]. - Vital Signs Vital signs: Temp Pulse Resp BP Pulse Ox 98.2 F 67 14 128/83 H 94 03/31/19 11:05 03/31/19 11:05 03/31/19 11:05 03/31/19 11:05 03/31/19 11:05 - Laboratory Result Diagrams: 03/31/19 12:09 03/31/19 12:09 Laboratory results interpreted by me: 03/31/19 03/31/19 03/31/19 12:09 12:09 12:09 RBC 3.08 L Hgb 8.1 L Hct 25.4 L MCH 26.2 L MCHC 31.8 L RDW 20.6 H Eos % (Auto) 7.2 H Chloride 95 L Carbon Dioxide 34 H Creatinine 5.02 H Est GFR ( Amer) 14 L Est GFR (MDRD) Non-Af 12 L Direct Bilirubin 0.5 H AST 14 L Urine Protein 100 H Urine Glucose (UA) 50 H Laboratory 03/31/19 03/31/19 03/31/19 12:09 12:09 12:09 WBC 7.8 RBC 3.08 L Hgb 8.1 L Hct 25.4 L MCV 82 MCH 26.2 L MCHC 31.8 L RDW 20.6 H Plt Count 203 Lymph % (Auto) 21.3 [place] % (Auto) 10.1 Eos % (Auto) 7.2 H Baso % (Auto) 0.3 Absolute Neuts (auto) 4.8 Absolute Lymphs (auto) 1.7 Absolute Monos (auto) 0.8 Absolute Eos (auto) 0.6 Absolute Basos (auto) 0.0 Seg Neutrophils % 61.1 Sodium 137.8 Potassium 3.8 Chloride 95 L Carbon Dioxide 34 H Anion Gap 9 BUN 19 Creatinine 5.02 H Est GFR ( Amer) 14 L Est GFR (MDRD) Non-Af 12 L Glucose 92 Calcium 8.9 Total Bilirubin 0.6 Direct Bilirubin 0.5 H Neonat Total Bilirubin Not Reportable Neonat Direct Bilirubin Not Reportable Neonat Indirect Bili Not Reportable AST 14 L ALT 11 Alkaline Phosphatase 78 Total Protein 7.6 Albumin 4.1 Urine Color STRAW Urine Appearance CLEAR Urine pH 9.0 Ur Specific [place] 1.005 Urine Protein 100 H Urine Glucose (UA) 50 H Urine Ketones NEGATIVE Urine Blood NEGATIVE Urine Nitrite NEGATIVE Urine Bilirubin NEGATIVE Urine Urobilinogen NEGATIVE Ur Leukocyte Esterase NEGATIVE Urine WBC (Auto) 1 Urine RBC (Auto) 1 Squamous Epi Cells Auto 1 Urine Mucus (Auto) RARE Urine Ascorbic Acid NEGATIVE - Diagnostic Test Radiology reviewed: Image reviewed, Reports reviewed Radiology results interpreted by me: 03/31/19 12:59 Chest X-Ray 03/31/19 11:24 IMPRESSION: 1. Subtle heterogeneous opacity of the right midlung, concern for infection. Consider follow-up radiographs in 1 to 2 days to observe for interval evolution as directed by clinical concern. 2. Cardiomegaly. Head CT 03/31/19 11:24 IMPRESSION: No acute intracranial pathology. No noncontrast CT findings to explain headache. EVIDENCE OF ACUTE STROKE: NO. Discharge - Discharge Clinical Impression: Pneumonia Qualifiers: Pneumonia type: due to unspecified organism Laterality: right Lung location: middle lobe of lung Qualified Code(s): J18.1 - Lobar pneumonia, unspecified organism Condition: Stable Disposition: HOME, SELF-CARE Instructions: Fever ([facility]) Additional Instructions: Please call your transplant physician at [facility] as soon as possible to arrange for reevaluation Prescriptions: Cefdinir 300 mg PO BID 7 Days #14 capsule Referrals: LISA SOLANO MD [Primary Care Provider] - Follow up as needed
--- NOTE | 2019-03-31 11:46 | RADIOLOGY REPORT (SQ) ---
EXAM DESCRIPTION: CT HEAD WITHOUT COMPLETED DATE/TIME: 03/31/2019 11:36 am REASON FOR STUDY: banks COMPARISON: None. TECHNIQUE: Axial images acquired through the brain without intravenous contrast. Images reviewed wi th bone, brain and subdural windows. Additional sagittal and coronal reconstructions were generated. Images stored on PACS. All CT scanners at this facility use dose modulation, iterative reconstruction, and/or weight based d osing when appropriate to reduce radiation dose to as low as reasonably achievable (ALARA). [facility]: Dose Right [facility]: CareDose [facility]: Dose Right [facility]: Teradose 4D [facility]: [facility] [employer] RADIATION DOSE: 978 mGy cm LIMITATIONS: None. FINDINGS: VENTRICLES: Normal size and contour. CEREBRUM: No masses. No hemorrhage. No midline shift. No evidence for acute infarction. Normal gra y/white matter differentiation. No areas of low density in the white matter. CEREBELLUM: No masses. No hemorrhage. No alteration of density. No evidence for acute infarction. EXTRAAXIAL SPACES: No fluid collections. No masses. ORBITS AND GLOBE: No intra- or extraconal masses. Normal contour of globe without masses. CALVARIUM: No fracture. PARANASAL SINUSES: No fluid or mucosal thickening. SOFT TISSUES: No mass or hematoma. OTHER: No other significant finding. IMPRESSION: No acute intracranial pathology. No noncontrast CT findings to explain headache. EVIDENCE OF ACUTE STROKE: NO. COMMENT: Quality ID # [id number]: Final reports with documentation of one or more dose reduction techniques (e.g., Automated exposure control, adjustment of the mA and/or kV according to patient size, use of iterative reconstruction technique) TECHNICAL DOCUMENTATION: JOB ID: [id number] [employer]- All Rights Reserved Reading location - IP/workstation name: [email or web address]
--- NOTE | 2019-03-31 12:11 | RADIOLOGY REPORT (SQ) ---
EXAM DESCRIPTION: CHEST 2 VIEWS COMPLETED DATE/TIME: 03/31/2019 12:01 pm REASON FOR STUDY: fever COMPARISON: 03/24/2008 EXAM PARAMETERS: NUMBER OF VIEWS: two views TECHNIQUE: Digital Frontal and Lateral radiographic views of the chest acquired. RADIATION DOSE: NA LIMITATIONS: none FINDINGS: LUNGS AND PLEURA: Subtle heterogeneous opacity of the right midlung. MEDIASTINUM AND HILAR STRUCTURES: No masses or contour abnormalities. HEART AND VASCULAR STRUCTURES: Cardiomegaly. Tortuous thoracic aorta. BONES: No acute findings. HARDWARE: None in the chest. OTHER: No other significant finding. IMPRESSION: 1. Subtle heterogeneous opacity of the right midlung, concern for infection. Consider follow-up radiographs in 1 to 2 days to observe for interval evolution as directed by clinical concer n. 2. Cardiomegaly. TECHNICAL DOCUMENTATION: JOB ID: [id number] [employer]- All Rights Reserved Reading location - IP/workstation name: [email or web address]
[2019-03-31 12:22] LABS: ABSOLUTE EOSINOPHILS # (AUTO) 0.6 10^3/uL (0.0-0.6); ABSOLUTE LYMPHOCYTES (AUTO) 1.7 10^3/uL (0.5-4.7); ABSOLUTE MONOCYTES (AUTO) 0.8 10^3/uL (0.1-1.4); ABSOLUTE NEUT (AUTO) 4.8 10^3/uL (1.7-8.2); BASOPHILS % (AUTO) 0.3 % (0-2); EOSINOPHILS % (AUTO) 7.2 % (0-6); HEMATOCRIT 25.4 % (37.9-51.0); HEMOGLOBIN 8.1 g/dL (13.5-17.0); LYMPHOCYTES % (AUTO) 21.3 % (13-45); MEAN CORPUSCULAR HEMOGLOBIN 26.2 pg (27.0-33.4); MEAN CORPUSCULAR HGB CONC 31.8 g/dL (32.0-36.0); MEAN CORPUSCULAR VOLUME 82 fl (80-97); MONOCYTES % (AUTO) 10.1 % (3-13); PLATELET COUNT 203 10^3/uL (150-450); RED BLOOD COUNT 3.08 10^6/uL (4.35-5.55); RED CELL DISTRIBUTION WIDTH 20.6 % (11.5-14.0); SEGMENTED NEUTROPHILS % (AUTO) 61.1 % (42-78); TOTAL CELLS COUNTED % (AUTO) 100 %; WHITE BLOOD COUNT 7.8 10^3/uL (4.0-10.5)
[2019-03-31 12:25] LABS: APPEARANCE,URINE CLEAR; BILIRUBIN,URINE NEGATIVE (NEGATIVE); COLOR,URINE STRAW; GLUCOSE, URINE 50 mg/dL (NEGATIVE); KETONES,URINE NEGATIVE (NEGATIVE); LEUKOCYTE ESTERASE,URINE NEGATIVE (NEGATIVE); NITRITE,URINE NEGATIVE (NEGATIVE); PROTEIN,URINE 100 mg/dL (NEGATIVE); URINE SPECIFIC GRAVITY 1.005; UROBILINOGEN,URINE NEGATIVE mg/dL (<2.0)
[2019-03-31 12:40] LABS: ALBUMIN 4.1 g/dL (3.5-5.0); ALKALINE PHOSPHATASE 78 U/L (38-126); ANION GAP 9 (5-19); ASPARTATE AMINO TRANSFERASE 14 U/L (17-59); BILIRUBIN,DIRECT 0.5 mg/dL (0.0-0.4); BILIRUBIN,TOTAL 0.6 mg/dL (0.2-1.3); BLOOD UREA NITROGEN 19 mg/dL (7-20); CALCIUM 8.9 mg/dL (8.4-10.2); CARBON DIOXIDE 34 mmol/L (22-30); CHLORIDE 95 mmol/L (98-107); GLUCOSE 92 mg/dL (75-110); POTASSIUM 3.8 mmol/L (3.6-5.0); TOTAL PROTEIN 7.6 g/dL (6.3-8.2)
[2019-03-31 13:24] VITALS: BP 130/87
== END 2019-03-31 13:24 | disposition home or self-care (01) ==
LOC: ER 10:57
DX: J18.1 Lobar pneumonia, unspecified organism (principal); R09.81 Nasal congestion; R51 Headache; R53.1 Weakness; I12.0 Hypertensive chronic kidney disease with stage 5 chronic kidney disease or end stage renal disease; N18.6 End stage renal disease; D63.1 Anemia in chronic kidney disease; Z99.2 Dependence on renal dialysis; Z88.1 Allergy status to other antibiotic agents
CPT/HCPCS: 36415; 70450; 71046; 80053; 81001; 85025; 99284

== ENCOUNTER → 2019-07-22 | Outpatient (CLI) | payer MEDICARE, OTHER ==
--- NOTE | 2019-07-22 12:40 | RADIOLOGY REPORT (SQ) ---
EXAM DESCRIPTION: U/S ABDOMEN LIMITED W/O DOP COMPLETED DATE/TIME: 07/22/2019 9:19 am REASON FOR STUDY: R16.0 HEPATOMEGALY, NOT ELSEWHERE CLASSIFIED R16.0 HEPATOMEGALY, NOT ELSEWHERE CL ASSIFIED COMPARISON: None. TECHNIQUE: Dynamic and static grayscale images acquired of the abdomen and recorded on PACS. Additio nal selected color Doppler and spectral images recorded. LIMITATIONS: None. FINDINGS: PANCREAS: No masses. Visualized pancreatic duct normal caliber. LIVER: No focal lesions. Liver measures up to 17.7 cm.Normal echotexture. LIVER VASCULATURE: Normal directional flow of the main portal vein and hepatic veins. GALLBLADDER: No stones. Normal wall thickness. No pericholecystic fluid. ULTRASOUND-DETECTED ZHONG'S SIGN: Negative. INTRAHEPATIC DUCTS AND COMMON DUCT: CBD and intrahepatic ducts normal caliber. No filling defects. INFERIOR VENA CAVA: Normal flow. AORTA: Dilation of the proximal aorta measuring up to 3.3 cm. RIGHT KIDNEY: Surgically absent. PERITONEAL AND RIGHT PLEURAL SPACE: No ascites or effusions. OTHER: No other significant findings. IMPRESSION: 1. Borderline hepatomegaly. No focal lesions. 2. Dilation of the proximal aorta measuring up to 3.3 cm. Follow-up recommendations as below. 3. Status post right nephrectomy. COMMENT: AAA Size: Follow-up Recommendation 3.0-3.4 cm Every 3 years *Based upon the Society for Vascular Surgery Guidelines: J Vasc Surg. 2009 Oct;50(4 Suppl):S2-49 *For aortas of maximum diameter of 2.6-2.9 cm meeting the criteria for AAA (?1.5 x proximal normal se gment) TECHNICAL DOCUMENTATION: JOB ID: [id number] [employer]- All Rights Reserved Reading location - IP/workstation name: [email or web address]
== END ==
LOC: RAD 08:30
PROVIDERS: ATTEND Internal Medicine Gastroenterology
DX: R16.0 Hepatomegaly, not elsewhere classified (principal)
CPT/HCPCS: 76705

== ENCOUNTER 2019-10-30 23:42 | Emergency (ER) | payer MEDICARE, OTHER ==
[2019-10-30] MEDS ORDERED: ONDANSETRON HCL INJ/PF 4 MG/2 ML SDV IV ONE (23:53)
[2019-10-30] MEDS ORDERED: MORPHINE SULFATE 10 MG/ML INJ IV ONE (23:53)
--- NOTE | 2019-10-30 23:56 | ER Document Report ---
ED Medical Screen (RME) - General Chief Complaint: Back Pain Stated Complaint: SEVERE BACK PAIN Time Seen by Provider: 10/30/19 23:52 Primary Care Provider: MILIND SALAZAR MD [Primary Care Provider] - Follow up as needed Notes: HPI: 59-year-old male presenting to the emergency department complaining of sudden onset of lower thoracic back pain with increased discomfort with taking a deep breath and that began while he was sitting at home this evening. No anterior chest pain. No shortness of breath, reports increased discomfort through the back with a deep breath. No abdominal pain nausea vomiting. Patient is a kidney transplant patient follows in [place] for this. Patient also sees Dr. Medrano nephrology for dialysis currently. States he is able to make urine, has not had fever or other recent illness but does state that he had a slight cough began tonight I have greeted and performed a rapid initial assessment of this patient. A comprehensive ED assessment and evaluation of the patient, analysis of test results and completion of the medical decision making process will be conducted by additional ED providers PHYSICAL EXAMINATION: Moderately uncomfortable with straightening. Has moderate tenderness through the lower thoracic spine, paraspinous musculature bilaterally on palpation. Lung sounds are clear to auscultation. Shunt to the left forearm with positive thrill and bruit TRAVEL OUTSIDE OF THE [place] IN LAST 30 DAYS: No - Related Data Allergies/Adverse Reactions: ciprofloxacin [From Cipro] Allergy (Severe, Verified 02/25/17 20:42) Anaphylaxis Past Medical History - Social History Family history: Reviewed & Not Pertinent - Past Medical History Cardiac Medical History: Reports: Hx Hypertension Denies: Hx Atrial Fibrillation, Hx Coronary Artery Disease, Hx Heart Attack Pulmonary Medical History: Denies: Hx Asthma, Hx Bronchitis, Hx COPD, Hx Pneumonia Neurological Medical History: Denies: Hx Cerebrovascular Accident, Hx Seizures Endocrine Medical History: Reports: Hx Hypothyroidism Renal/ Medical History: Reports: Hx End Stage Renal Disease, Hx Peritoneal Dialysis Malignancy Medical History: Reports Hx Renal (Kidney) Cancer - right side - cleared from cancer after nephrectomy Musculoskeltal Medical History: Reports Hx Arthritis - KNEES Traumatic Medical History: Reports: Hx Fractures Past Surgical History: Reports: Hx Kidney (Renal Surgery) - right nephrectomy, kidney transplant 10/13/2017, Hx Orthopedic Surgery - ankle - Immunizations Immunizations up to date: Yes Hx Diphtheria, Pertussis, Tetanus Vaccination: Yes Physical Exam - Vital signs Vitals: Temp Pulse Resp BP Pulse Ox 97.7 F 60 18 184/106 H 95 10/30/19 23:47 10/30/19 23:47 10/30/19 23:47 10/30/19 23:47 10/30/19 23:47 Course - Vital Signs Vital signs: Temp Pulse Resp BP Pulse Ox 97.7 F 60 18 184/106 H 95 10/30/19 23:47 10/30/19 23:47 10/30/19 23:47 10/30/19 23:47 10/30/19 23:47 Doctor's Discharge - Discharge Referrals: MILIND SALAZAR MD [Primary Care Provider] - Follow up as needed
--- NOTE | 2019-10-31 00:37 | RADIOLOGY REPORT (SQ) ---
EXAM DESCRIPTION: X-RAY CHEST TWO VIEWS CLINICAL HISTORY: 59 years Male lower mid back pain COMPARISON: None TECHNIQUE: PA and lateral chest x-rays at 0028 hours on 10/31/2019. FINDINGS: The lungs are mildly overinflated. No focal consolidation or pleural effusions. Mild cardiomegaly with normal pulmonary vascularity. The aorta is calcified and ectatic with prominent tortuosity at the T10 level. There is a long vascular stent in the left subclavian and axillary projection. No acute bony abnormalities are seen. IMPRESSION: No active cardiopulmonary lesions. Mild cardiomegaly. Advanced atherosclerotic changes of the aorta.
[2019-10-31 00:44] LABS: HEMATOCRIT 32.4 % (37.9-51.0); HEMOGLOBIN 10.4 g/dL (13.5-17.0); MEAN CORPUSCULAR HEMOGLOBIN 27.5 pg (27.0-33.4); MEAN CORPUSCULAR VOLUME 86 fl (80-97); PLATELET COUNT 154 10^3/uL (150-450); RED BLOOD COUNT 3.78 10^6/uL (4.35-5.55); RED CELL DISTRIBUTION WIDTH 21.8 % (11.5-14.0); WHITE BLOOD COUNT 7.4 10^3/uL (4.0-10.5)
[2019-10-31 00:58] LABS: ALBUMIN 4.3 g/dL (3.5-5.0); ALKALINE PHOSPHATASE 76 U/L (38-126); ANION GAP 13 (5-19); ASPARTATE AMINO TRANSFERASE 25 U/L (17-59); BILIRUBIN,DIRECT 0.4 mg/dL (0.0-0.4); BILIRUBIN,TOTAL 0.8 mg/dL (0.2-1.3); BLOOD UREA NITROGEN 39 mg/dL (7-20); CALCIUM 8.8 mg/dL (8.4-10.2); CARBON DIOXIDE 29 mmol/L (22-30); CHLORIDE 97 mmol/L (98-107); GLUCOSE 96 mg/dL (75-110); POTASSIUM 4.5 mmol/L (3.6-5.0); TOTAL PROTEIN 7.5 g/dL (6.3-8.2)
--- NOTE | 2019-10-31 01:01 | ER Document Report ---
ED General - General Chief Complaint: Back Pain Stated Complaint: SEVERE BACK PAIN Time Seen by Provider: 10/30/19 23:52 Primary Care Provider: Mishel ROSENTHAL MD [ACTIVE STAFF] - Follow up in 3-5 days Notes: Patient is a 59-year-old male with a history of a right kidney transplant due to kidney cancer who presents emergency department with back pain. States that the pain is in his thoracic chest. He states that when he takes a deep breath he ends up having pain in that area. He denies doing any specific movements that are out of the ordinary. Patient states that he has not had this pain before. Patient also has history of throat cancer. TRAVEL OUTSIDE OF THE [place] IN LAST 30 DAYS: No - Related Data Allergies/Adverse Reactions: ciprofloxacin [From Cipro] Allergy (Severe, Verified 02/25/17 20:42) Anaphylaxis Past Medical History - Social History Smoking Status: Never Smoker Chew tobacco use (# tins/day): No Frequency of alcohol use: None Drug Abuse: None Family History: Reviewed & Not Pertinent Patient has suicidal ideation: No Patient has homicidal ideation: No - Past Medical History Cardiac Medical History: Reports: Hx Hypertension Denies: Hx Atrial Fibrillation, Hx Coronary Artery Disease, Hx Heart Attack Pulmonary Medical History: Denies: Hx Asthma, Hx Bronchitis, Hx COPD, Hx Pneumonia Neurological Medical History: Denies: Hx Cerebrovascular Accident, Hx Seizures Endocrine Medical History: Reports: Hx Hypothyroidism Renal/ Medical History: Reports: Hx End Stage Renal Disease, Hx Peritoneal Dialysis Malignancy Medical History: Reports Hx Renal (Kidney) Cancer - right side - cleared from cancer after nephrectomy Musculoskeletal Medical History: Reports Hx Arthritis - KNEES Traumatic Medical History: Reports: Hx Fractures Past Surgical History: Reports: Hx Kidney (Renal Surgery) - right nephrectomy, kidney transplant 10/13/2017, Hx Orthopedic Surgery - ankle - Immunizations Immunizations up to date: Yes Hx Diphtheria, Pertussis, Tetanus Vaccination: Yes Review of Systems - Review of Systems Notes: REVIEW OF SYSTEMS: CONSTITUTIONAL : Denies recent illness. Denies recent unintentional weight loss. Denies fever, chills, or sweats. EENT: Denies eye, ear, throat, or mouth pain, discharge, or symptoms. Denies nasal or sinus congestion. CARDIOVASCULAR: Denies chest pain. RESPIRATORY: Denies shortness of breath, cough, congestion, difficulty breathing, or wheezing. GASTROINTESTINAL: Denies nausea, vomiting, and diarrhea. Denies abdominal pain. Denies constipation. GENITOURINARY: Denies difficulty urinating, burning, blood in urine, urgency or frequency. MUSCULOSKELETAL: See HPI. Denies joint pain or swelling. SKIN: Denies rash, itchiness, or lesions HEMATOLOGIC : Denies easy bruising or bleeding. LYMPHATIC: Denies swollen, painful, enlarged glands. NEUROLOGICAL: Denies no numbness or tingling denies weakness. Denies headache. Denies altered mental status. Denies alteration in speech. PSYCHIATRIC: Denies stress, anxiety, alteration in sleep patterns, or depression. All other systems reviewed and negative. Physical Exam - Vital signs Vitals: Temp Pulse Resp BP Pulse Ox 97.7 F 60 18 184/106 H 95 10/30/19 23:47 10/30/19 23:47 10/30/19 23:47 10/30/19 23:47 10/30/19 23:47 - Notes Notes: PHYSICAL EXAMINATION: GENERAL: Appears well, healthy, well-nourished, no acute distress. HEAD: Normocephalic, atraumatic. EYES: PERRL, conjunctiva normal, all extraocular movements intact, sclera nonicteric ENT: Moist mucous membranes. NECK: Supple, no noticeable swelling, redness, rash. Normal range of motion. LUNGS: Equal breath sounds bilaterally and clear to auscultation. No wheezes rales or rhonchi. CARDIOVASCULAR: S1-S2, regular rate, regular rhythm. Radial pulses 2+, normal. ABDOMEN: Normoactive bowel sounds. Soft, nontender, no guarding, no rebound tenderness, and no masses palpated. EXTREMITIES: Normal strength and range of motion, no pitting or edema. No cyanosis. NEUROLOGICAL: Moves all extremities upon command. Strength 5/5 in all extremities. PSYCH: Normal mood, normal affect. SKIN: Warm, dry. No rash, lesions, ulcerations noted. Normal skin turgor. BACK: Tenderness noted to mid back upon palpation. Course - Re-evaluation Re-evalutation: 10/31/19 02:03 CT of the abdomen pelvis shows chronic changes. No acute abnormalities noted. Physical exam is consistent with muscle pain, as the patient has tenderness to his mid/upper back.Hematology and is unremarkable other than anemia. Chemistries show a creatinine of 8.62 and a BUN of 39, which is consistent with his end-stage renal disease. LFTs are normal. Other chemistries are also normal. Urinalysis shows protein in the urine and a small amount of glucose. No leukocytosis noted. CT of the chest, abdomen, and pelvis show stable cardiomegaly and a trace amount of pericardial fluid. Patient has diffuse anasarca, consistent with his end-stage renal disease. He also has a small amount of ascites. There is diverticulosis, but no diverticulitis noted, as per the radiologist. No aortic dissection noted. Patient states that he feels better after receiving the second dose of morphine. We will start him on Flexeril. He is in agreement with this plan. Follow-up precautions were given. Verbal discharge instructions were given to the patient. They verbalized understanding. They are stable for discharge. - Vital Signs Vital signs: Temp Pulse Resp BP Pulse Ox 97.2 F 60 13 180/106 H 87 L 10/31/19 04:01 10/30/19 23:47 10/31/19 04:01 10/31/19 04:01 10/31/19 04:01 - Laboratory Result Diagrams: 10/31/19 00:29 10/31/19 00:25 Laboratory results interpreted by me: 10/31/19 10/31/19 10/31/19 00:25 00:29 03:19 RBC 3.78 L Hgb 10.4 L Hct 32.4 L RDW 21.8 H Chloride 97 L BUN 39 H Creatinine 8.62 H Est GFR ( Amer) 8 L Est GFR (MDRD) Non-Af 6 L Urine Protein 100 H Urine Glucose (UA) 50 H Discharge - Discharge Clinical Impression: Back pain Qualifiers: Back pain location: thoracic back pain Chronicity: acute Back pain laterality: bilateral Qualified Code(s): M54.6 - Pain in thoracic spine Condition: Stable Disposition: HOME, SELF-CARE Additional Instructions: You are seen today in the emergency department for back pain. You are being started on Flexeril to help with your pain, as your pain is most likely due to muscle pain. Please follow-up with your primary care provider in regards to this visit. Prescriptions: Cyclobenzaprine HCl [Flexeril 10 mg Tablet] 10 mg PO TIDP PRN #25 tab PRN Reason: Referrals: Mishel ROSENTHAL MD [ACTIVE STAFF] - Follow up in 3-5 days
[2019-10-31 01:06] LABS: ABSOLUTE LYMPHOCYTES# (MANUAL) 1.9 10^3/uL (0.5-4.7); ABSOLUTE MONOCYTES # (MANUAL) 0.4 10^3/uL (0.1-1.4); BASOPHILS % (MANUAL) 0 % (0-2); EOSINOPHILS % (MANUAL) 1 % (0-6); LYMPHOCYTES % (MANUAL) 25 % (13-45); MONOCYTES % (MANUAL) 6 % (3-13); SEGMENTED NEUTROPHILS % (MAN) 68 % (42-78); TOTAL CELLS COUNTED 100
[2019-10-31 01:07] LABS: OVALOCYTES SLIGHT
[2019-10-31 01:08] LABS: ANISOCYTOSIS 3+; PLATELET COMMENT ADEQUATE; POIKILOCYTOSIS SLIGHT
--- NOTE | 2019-10-31 01:31 | RADIOLOGY REPORT (SQ) ---
EXAM DESCRIPTION: CT CHEST WITHOUT IV CONTRAST, CT ABDOMEN PELVIS WITHOUT IV CONTRAST COMPLETED DATE/TME: 10/31/2019 00:57 CLINICAL HISTORY: 59 years, Male, back pain; Hx R kidney transplant COMPARISON: 11/06/2016 CT chest TECHNIQUE: 392 Images stored on PACS. All CT scanners at this facility use dose modulation, iterative reconstruction, and/or weight based dosing when appropriate to reduce radiation dose to as low as reasonably achievable (ALARA). [facility]: Dose Right [facility]: CareDose [facility]: Dose Right [facility]: Teradose 4D [facility]: [employer] LIMITATIONS: None. FINDINGS: CT chest: Evaluation of the mediastinum and hilum limited due to lack of IV contrast. No convincing evidence for mediastinal or hilar adenopathy. Cardiomegaly. Diffuse anasarca. Trace of pericardial fluid. Osseous structures of the thorax are grossly intact. Endovascular stent graft in the left subclavian region. No pneumothorax. Airways are patent. Minor scarring in the lung bases. Lungs are otherwise clear. CT abdomen/pelvis: Osseous structures of the abdomen/pelvis are grossly intact. Diffuse anasarca. The visualized liver, spleen, adrenal glands, pancreas are unremarkable. The gallbladder is present. Presumed right nephrectomy. Atrophic appearance to the left kidney with multiple left renal cysts. Correlate with history and renal function. No gross evidence for bowel obstruction. Right lower quadrant transplant kidney. No focal perinephric fluid collection associated with the transplant kidney. Small volume of ascites. No free air. Sigmoid diverticulosis without CT evidence for diverticulitis. IMPRESSION: Cardiomegaly. Trace of pericardial fluid. Diffuse anasarca. Small amount of ascites. Sigmoid diverticulosis without CT evidence for diverticulitis. TECHNICAL DOCUMENTATION: Quality ID # [id number]: Final reports with documentation of one or more dose reduction techniques (e.g., Automated exposure control, adjustment of the mA and/or kV according to patient size, use of iterative reconstruction technique) copyright 2011 [employer]- All Rights Reserved
[2019-10-31] MEDS ORDERED: CYCLOBENZAPRINE HCL 10 MG TABLET PO ONE (02:10)
[2019-10-31] MEDS ORDERED: ONDANSETRON HCL INJ/PF 4 MG/2 ML SDV IV ONE (03:18)
[2019-10-31] MEDS ORDERED: MORPHINE SULFATE 10 MG/ML INJ IV ONE (03:18)
[2019-10-31 03:51] LABS: APPEARANCE,URINE CLEAR; BILIRUBIN,URINE NEGATIVE (NEGATIVE); COLOR,URINE YELLOW; GLUCOSE, URINE 50 mg/dL (NEGATIVE); KETONES,URINE NEGATIVE (NEGATIVE); LEUKOCYTE ESTERASE,URINE NEGATIVE (NEGATIVE); NITRITE,URINE NEGATIVE (NEGATIVE); PROTEIN,URINE 100 mg/dL (NEGATIVE); URINE SPECIFIC GRAVITY 1.009; UROBILINOGEN,URINE NEGATIVE mg/dL (<2.0)
[2019-10-31] MEDS ORDERED: CLONIDINE HCL 0.1 MG TABLET PO ONE (04:04)
[2019-10-31 04:23] VITALS: BP 180/106
== END 2019-10-31 04:31 | disposition home or self-care (01) ==
LOC: ER 23:42
DX: M54.6 Pain in thoracic spine (principal); I13.11 Hypertensive heart and chronic kidney disease without heart failure, with stage 5 chronic kidney disease, or end stage renal disease; N18.6 End stage renal disease; D63.1 Anemia in chronic kidney disease; Z99.2 Dependence on renal dialysis; Z94.0 Kidney transplant status; Z85.528 Personal history of other malignant neoplasm of kidney; K57.30 Diverticulosis of large intestine without perforation or abscess without bleeding
CPT/HCPCS: 96376; 99284; 96374; 96375; 36415; 85025; 80053; 81001; 71046; 71250; 74176; A9270 ×2; J2270; J2405

== ENCOUNTER 2019-10-31 04:52 | Emergency (ER) | payer MEDICARE, OTHER ==
--- NOTE | 2019-10-31 04:58 | ER Document Report ---
ED General - General TRAVEL OUTSIDE OF THE [place] IN LAST 30 DAYS: No <MARIAELENA CABRALSON White - Last Filed: 10/31/19 08:06> <CHRISTIAN DEL RIO - Last Filed: 10/31/19 10:27> - General Chief Complaint: Breathing Difficulty Stated Complaint: BREATHING DIFFICULTY Time Seen by Provider: 10/31/19 04:53 Primary Care Provider: Mishel ROSENTHAL MD [ACTIVE STAFF] - Follow up in 3-5 days Notes: Patient is a 59-year-old male with a history of end-stage renal disease, on dialysis who presents emergency department with chest pain. Patient was recently seen here in the emergency department just prior to this visit for back pain. He had a full work-up, including a CT scan of the chest, abdomen, and pelvis. Patient states that he was able to walk out of the emergency department with no difficulty. He got into his car and his son drove. When they got to the stoplight, the patient developed sudden onset of chest pain and shortness of breath. Patient states that he has not felt this before. (KYMBERLY CABRAL) - Related Data Allergies/Adverse Reactions: ciprofloxacin [From Cipro] Allergy (Severe, Verified 02/25/17 20:42) Anaphylaxis Past Medical History - General Information source: Patient - Social History Family History: Reviewed & Not Pertinent - Past Medical History Cardiac Medical History: Reports: Hx Hypertension Denies: Hx Atrial Fibrillation, Hx Coronary Artery Disease, Hx Heart Attack Pulmonary Medical History: Denies: Hx Asthma, Hx Bronchitis, Hx COPD, Hx Pneumonia Neurological Medical History: Denies: Hx Cerebrovascular Accident, Hx Seizures Endocrine Medical History: Reports: Hx Hypothyroidism Renal/ Medical History: Reports: Hx End Stage Renal Disease, Hx Peritoneal Dialysis Malignancy Medical History: Reports Hx Renal (Kidney) Cancer - right side - cleared from cancer after nephrectomy Musculoskeletal Medical History: Reports Hx Arthritis - KNEES Traumatic Medical History: Reports: Hx Fractures Past Surgical History: Reports: Hx Kidney (Renal Surgery) - right nephrectomy, kidney transplant 10/13/2017, Hx Orthopedic Surgery - ankle - Immunizations Immunizations up to date: Yes Hx Diphtheria, Pertussis, Tetanus Vaccination: Yes <IMSHAKYMBERLY M - Last Filed: 10/31/19 08:06> - Social History Smoking Status: Unknown if Ever Smoked Family History: Reviewed & Not Pertinent <CHRISTIAN DEL RIO - Last Filed: 10/31/19 10:27> Review of Systems <KYMBERLY CABRAL - Last Filed: 10/31/19 08:06> - Review of Systems Notes: REVIEW OF SYSTEMS: CONSTITUTIONAL : Denies recent illness. Denies recent unintentional weight loss. Denies fever, chills, or sweats. EENT: Denies eye, ear, throat, or mouth pain, discharge, or symptoms. Denies nasal or sinus congestion. CARDIOVASCULAR: See HPI. RESPIRATORY: See HPI. GASTROINTESTINAL: Denies nausea, vomiting, and diarrhea. Denies abdominal pain. Denies constipation. GENITOURINARY: Denies difficulty urinating, burning, blood in urine, urgency or frequency. MUSCULOSKELETAL: Denies neck and back pain. Denies joint pain or swelling. SKIN: Denies rash, itchiness, or lesions HEMATOLOGIC : Denies easy bruising or bleeding. LYMPHATIC: Denies swollen, painful, enlarged glands. NEUROLOGICAL: Denies no numbness or tingling denies weakness. Denies headache. Denies altered mental status. Denies alteration in speech. PSYCHIATRIC: Denies stress, anxiety, alteration in sleep patterns, or depression. All other systems reviewed and negative. (KYMBERLY CABRAL) Physical Exam <KYMBERLY CABRAL - Last Filed: 10/31/19 08:06> - Vital signs Vitals: Pulse Ox 85 L 10/31/19 04:51 - Notes Notes: PHYSICAL EXAMINATION: GENERAL: Appears well, healthy, well-nourished, no acute distress. HEAD: Normocephalic, atraumatic. EYES: PERRL, conjunctiva normal, all extraocular movements intact, sclera nonicteric ENT: Moist mucous membranes. NECK: Supple, no noticeable swelling, redness, rash. Normal range of motion. LUNGS: Equal breath sounds bilaterally and clear to auscultation. No wheezes rales or rhonchi. Tachypnic, hyperventalating. CARDIOVASCULAR: S1-S2, regular rate, regular rhythm. Radial pulses 2+, normal. ABDOMEN: Normoactive bowel sounds. Soft, nontender, no guarding, no rebound tenderness, and no masses palpated. EXTREMITIES: Normal strength and range of motion, no pitting or edema. No cyanosis. NEUROLOGICAL: Moves all extremities upon command. Strength 5/5 in all extremities. PSYCH: Normal mood, normal affect. SKIN: Warm, dry. No rash, lesions, ulcerations noted. Normal skin turgor. (FLORI KNUTSONKYMBERLY) Course - Laboratory Result Diagrams: 10/31/19 04:57 10/31/19 04:57 <KYMBERLY CABRAL - Last Filed: 10/31/19 08:06> - Laboratory Result Diagrams: 10/31/19 04:57 10/31/19 04:57 <CHRISTIAN DEL RIO - Last Filed: 10/31/19 10:27> - Re-evaluation Re-evalutation: 10/31/19 05:00 I discussed the patient's previous visit with Dr. Proctor, my attending. We reviewed labs, vital signs, diagnostic imaging, and at this time, we were going to give 1 mg of Ativan, as the patient appears anxious. Patient states that he is not anxious, but his heart rate is in the 60s and he is hyper ventilating. I evaluated the patient's chart and noted that his blood pressure has always been high and is high blood pressure reading is not a new thing. He denies any headaches. 10/31/19 06:42 I called the patient's son and spoke with him and asked him if the patient was having some anxiety and the son stated no. Patient's son stated that at first he was nervous about COVID 19, but has calmed down now that time has passed. Patient son states that the patient has an appointment with [facility] on and Friday to have a stent placed in his fistula. The patient woke up and became confused and took his EKG leads off. I evaluated him and asked him if he was anxious about having the stent placed on and he stated that he was nervous. Patient denied any back pain or chest pain when I reassessed him. Repeat chest x-ray does not show any acute findings. 10/31/19 07:00 The patient had woken up more and stated that he was ready to go home. He states that the pain feels much better. Patient also endorsed that he had not been sleeping very well due to finding out whether or not he will be put on the transplant list this Friday. Advised the patient that it is important that he sleeps. I will send him home with a [place] dose pack to help with pain. Discussed this case with Dr. Valderrama, who is now my attending. He is advising to not let the patient go home and have troponin redrawn at 1130. I was able to speak with the patient and convince him to stay. 10/31/19 08:06 Dr. Valderrama has evaluated the patient. At this time, repeat EKG and troponin will be done at 11:30. Plan is to have the patient go home if these are normal. Report given to BARRY Camarena. (KYMBERLY CABRAL) 10/31/19 10:23 Patient is an afebrile, well-hydrated, 59-year-old male who presents with nonspecific chest pain, suspect benign at this time. Vitals are acceptable wi thout significant tachycardia, tachypnea, hypoxia. PE is otherwise unremarkable. Patient is nontoxic-appearing and is tolerating p.o. without difficulty. Repeat EKG and troponin are unremarkable. Patient had no acute changes symptomatically with sublingual nitro. Blood pressure is now acceptable after hydralazine as well. This was reviewed with Dr. Valderrama who is in agreement with discharge at this time. Patient otherwise has a heart score less than equal to 3. He has not had any shortness of breath or dyspnea associated. Pain is sharp in nature and does not correlate well with ACS. Cardiac enzymes, labs, and x-ray also unremarkable or suggestive of any serious cardiopulmonary pathology at this time. Patient's presentation and symptomatology creates low suspicion for ACS, PE, pneumothorax, pericarditis, dissection, respiratory compromise, severe dehydration, sepsis, meningitis, or other systemic emergent condition at this time. Patient is aware that his condition can change from initial presentation and he needs to monitor symptoms closely and seek medical attention for any acute changes. Pt is feeling better and would like to go home. Recommend conservative measures for symptoms. Recheck with your PCM in 2-3 days. Schedule consult with Cardiology/nephrology. Return to the ED with any worsening/concerning symptoms otherwise as reviewed in discharge. Patient is in agreement. (CHRISTIAN DEL RIO) - Vital Signs Vital signs: Temp Pulse Resp BP Pulse Ox 98.4 F 15 180/110 H 99 10/31/19 09:50 10/31/19 10:01 10/31/19 10:02 10/31/19 10:02 - Laboratory Laboratory results interpreted by me: 10/31/19 10/31/19 04:57 04:57 RBC 3.89 L Hgb 10.8 L Hct 33.5 L RDW 21.5 H Chloride 95 L BUN 40 H Creatinine 8.97 H Est GFR ( Amer) 7 L Est GFR (MDRD) Non-Af 6 L Direct Bilirubin 0.8 H Total Protein 8.4 H Discharge <KYMBERLY CABRAL - Last Filed: 10/31/19 08:06> <CHRISTIAN DEL RIO - Last Filed: 10/31/19 10:27> - Discharge Clinical Impression: Nonspecific chest pain Condition: Stable Disposition: HOME, SELF-CARE Instructions: Chest Pain of Unclear Cause ([facility]) Additional Instructions: Maintain adequate fluid and food intake Take home medications as directed Healthy diet Monitor blood pressure daily and keep a log Monitor symptoms for any acute changes Recheck with your PCM in 2-3 days Schedule 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 Forms: Elevated Blood Pressure Referrals: Mishel ROSENTHAL MD [ACTIVE STAFF] - Follow up in 3-5 days GAUTAM PABON MD [ACTIVE STAFF] - Follow up as needed
[2019-10-31] MEDS ORDERED: LORAZEPAM INJ 2 MG/1 ML VIAL IV ONE (05:02)
[2019-10-31 05:11] LABS: ABSOLUTE EOSINOPHILS # (AUTO) 0.1 10^3/uL (0.0-0.6); ABSOLUTE LYMPHOCYTES (AUTO) 1.7 10^3/uL (0.5-4.7); ABSOLUTE MONOCYTES (AUTO) 0.7 10^3/uL (0.1-1.4); ABSOLUTE NEUT (AUTO) 5.4 10^3/uL (1.7-8.2); BASOPHILS % (AUTO) 0.3 % (0-2); EOSINOPHILS % (AUTO) 0.8 % (0-6); HEMATOCRIT 33.5 % (37.9-51.0); HEMOGLOBIN 10.8 g/dL (13.5-17.0); LYMPHOCYTES % (AUTO) 21.2 % (13-45); MEAN CORPUSCULAR HEMOGLOBIN 27.8 pg (27.0-33.4); MEAN CORPUSCULAR HGB CONC 32.3 g/dL (32.0-36.0); MEAN CORPUSCULAR VOLUME 86 fl (80-97); MONOCYTES % (AUTO) 8.6 % (3-13); PLATELET COUNT 162 10^3/uL (150-450); RED BLOOD COUNT 3.89 10^6/uL (4.35-5.55); RED CELL DISTRIBUTION WIDTH 21.5 % (11.5-14.0); SEGMENTED NEUTROPHILS % (AUTO) 69.1 % (42-78); TOTAL CELLS COUNTED % (AUTO) 100 %; WHITE BLOOD COUNT 7.8 10^3/uL (4.0-10.5)
[2019-10-31 05:33] LABS: ALBUMIN 4.7 g/dL (3.5-5.0); ALKALINE PHOSPHATASE 82 U/L (38-126); ANION GAP 16 (5-19); ASPARTATE AMINO TRANSFERASE 26 U/L (17-59); BILIRUBIN,DIRECT 0.8 mg/dL (0.0-0.4); BILIRUBIN,TOTAL 0.9 mg/dL (0.2-1.3); BLOOD UREA NITROGEN 40 mg/dL (7-20); CALCIUM 9.2 mg/dL (8.4-10.2); CARBON DIOXIDE 29 mmol/L (22-30); CHLORIDE 95 mmol/L (98-107); GLUCOSE 92 mg/dL (75-110); POTASSIUM 4.5 mmol/L (3.6-5.0); TOTAL PROTEIN 8.4 g/dL (6.3-8.2)
--- NOTE | 2019-10-31 05:34 | RADIOLOGY REPORT (SQ) ---
EXAM DESCRIPTION: XR CHEST 1 VIEW COMPLETED DATE/TME: 10/31/2019 04:54 CLINICAL HISTORY: 59 years, Male, chest pain COMPARISON: 10/31/2019 chest x-ray at 12:28 AM NUMBER OF VIEWS: 1 TECHNIQUE: Portable chest LIMITATIONS: None. FINDINGS: Cardiomegaly. Endovascular stent graft projects over the left subclavian region. Atheromatous change with tortuosity of the thoracic aorta. No pneumothorax. Lungs are clear IMPRESSION: Stable cardiomegaly. Lungs are clear copyright 2011 [employer]- All Rights Reserved
[2019-10-31] MEDS ORDERED: HYDROCODONE/ACETAMINOPHEN 5-325 MG (6 TAB/ER DISP) PO PRN (06:57)
[2019-10-31] MEDS ORDERED: LABETALOL HCL 200 MG TABLET PO ONE (07:27)
[2019-10-31] MEDS ORDERED: ASPIRIN 81 MG TABLET, CHEWABLE PO ONE (07:28)
[2019-10-31] MEDS ORDERED: LORAZEPAM 1 MG TABLET PO ONE (07:39)
[2019-10-31] MEDS ORDERED: HYDRALAZINE HCL INJ/PF 20 MG/1 ML SDV IV ONE (08:05)
[2019-10-31] MEDS ORDERED: NITROGLYCERIN 0.4 MG/TAB 25 TAB/BOTTLE SL PRN (08:19)
[2019-10-31 10:22] VITALS: BP 180/110
--- NOTE | 2019-10-31 12:30 | EKG REPORT ---
SEVERITY:- ABNORMAL ECG - SINUS RHYTHM VENTRICULAR PREMATURE COMPLEX LEFT AXIS DEVIATION CONSIDER ANTERIOR INFARCT BORDERLINE T WAVE ABNORMALITIES : Confirmed by: Nichol Shane MD 31-Oct-2019 12:29:58
--- NOTE | 2019-10-31 12:30 | EKG REPORT ---
SEVERITY:- BORDERLINE ECG - SINUS RHYTHM VENTRICULAR PREMATURE COMPLEX LEFT AXIS DEVIATION CONSIDER ANTERIOR INFARCT : Confirmed by: Nichol Shane MD 31-Oct-2019 12:29:52
== END 2019-10-31 10:57 | disposition home or self-care (01) ==
LOC: ER 04:52
DX: R07.9 Chest pain, unspecified (principal); I12.0 Hypertensive chronic kidney disease with stage 5 chronic kidney disease or end stage renal disease; N18.6 End stage renal disease; Z99.2 Dependence on renal dialysis; R06.4 Hyperventilation; R41.0 Disorientation, unspecified; Z94.0 Kidney transplant status; Z85.528 Personal history of other malignant neoplasm of kidney; Z87.892 Personal history of anaphylaxis; Z88.1 Allergy status to other antibiotic agents
CPT/HCPCS: 93005; 99285; 96374; 96375; 36415; 83690; 83735; 87070; 84484; 71045; 93010; A9270 ×5; J0360; J2060

== ENCOUNTER 2019-11-01 08:03 | Emergency (ER) | payer MEDICARE ==
--- NOTE | 2019-11-01 08:14 | ER Document Report ---
ED General - General Chief Complaint: Abdominal Pain Stated Complaint: ABDOMINAL PAIN Time Seen by Provider: 11/01/19 08:13 Primary Care Provider: MILIND SALAZAR MD [ACTIVE STAFF] - Follow up as needed Mishel MEDRANO MD [Primary Care Provider] - Follow up in 3-5 days Information source: Patient Notes: 59-year-old male with history of end-stage kidney disease, kidney cancer right nephrectomy presents emergency department with complaints of left sided abdominal pain. Reports he woke up at approximately 4:00 today felt fine. Around 6:00 he started having this gripping pain to his left side. He reports he thought it was gas so he went to the bathroom. Reports bowel movement this morning. He reports the pain feels like the same way it did when he had a tumor on his right side. Patient has had a right nephrectomy due to kidney cancer. He is on dialysis. Was supposed to go to dialysis this morning but he had the pain so came to the ED. He denies fever nausea vomiting diarrhea. Reports his face feels swollen to him and he is little short of breath with some dizziness. TRAVEL OUTSIDE OF THE [place] IN LAST 30 DAYS: No - HPI Onset: This morning Onset/Duration: Sudden Quality of pain: Other - GRIPPING Associated symptoms: None Exacerbated by: Denies Relieved by: Denies Similar symptoms previously: No Recently seen / treated by doctor: No - Related Data Allergies/Adverse Reactions: ciprofloxacin [From Cipro] Allergy (Severe, Verified 02/25/17 20:42) Anaphylaxis Past Medical History - General Information source: Patient - Social History Smoking Status: Unknown if Ever Smoked Cigarette use (# per day): No Frequency of alcohol use: None Drug Abuse: None Lives with: Family - Son Family History: Reviewed & Not Pertinent - Past Medical History Cardiac Medical History: Reports: Hx Hypertension Denies: Hx Atrial Fibrillation, Hx Coronary Artery Disease, Hx Heart Attack Pulmonary Medical History: Denies: Hx Asthma, Hx Bronchitis, Hx COPD, Hx Pneumonia Neurological Medical History: Denies: Hx Cerebrovascular Accident, Hx Seizures Endocrine Medical History: Reports: Hx Hypothyroidism Renal/ Medical History: Reports: Hx End Stage Renal Disease, Hx Hemodialysis, Hx Peritoneal Dialysis Malignancy Medical History: Reports Hx Renal (Kidney) Cancer - right side - cleared from cancer after nephrectomy Musculoskeletal Medical History: Reports Hx Arthritis - KNEES Traumatic Medical History: Reports: Hx Fractures Past Surgical History: Reports: Hx Kidney (Renal Surgery) - right nephrectomy, kidney transplant 10/13/2017, Hx Orthopedic Surgery - ankle - Immunizations Immunizations up to date: Yes Hx Diphtheria, Pertussis, Tetanus Vaccination: Yes Review of Systems - Review of Systems Notes: Review HPI for review of systems., All other systems negative Physical Exam - Vital signs Vitals: Temp Pulse Resp BP Pulse Ox 98.5 F 74 20 178/96 H 94 11/01/19 08:10 11/01/19 08:10 11/01/19 08:10 11/01/19 08:10 11/01/19 08:10 - General General appearance: Alert In distress: None - HEENT Head: Normocephalic, Atraumatic Eyes: Normal Conjunctiva: Normal Extraocular movements intact: Yes Pupils: PERRL Ears: Normal External canal: Normal Tympanic membrane: Normal Nasal: Normal Mouth/Lips: Normal Mucous membranes: Moist Pharynx: Normal. No: Erythema Neck: Normal, Supple. No: Lymphadenopathy - Respiratory Respiratory status: No respiratory distress Chest status: Nontender Breath sounds: Normal Chest palpation: Normal - Cardiovascular Rhythm: Regular Heart sounds: Normal auscultation Murmur: No - Abdominal Distension: Distended Bowel sounds: Hypoactive Tenderness: Tender - Back Back: CVA tenderness - left - Extremities General upper extremity: Normal ROM General lower extremity: Normal ROM Forearm: Other - thrill noted LFA - Neurological Neuro grossly intact: Yes Cognition: Normal Orientation: AAOx4 [place] Coma Scale Eye Opening: Spontaneous [place] Coma Scale Verbal: Oriented [place] Coma Scale Motor: Obeys Commands White Coma Scale Total: 15 Speech: Normal - Psychological Associated symptoms: Normal affect, Normal mood - Skin Skin Temperature: Warm Skin Moisture: Dry Skin Color: Normal Course - Re-evaluation Re-evalutation: 11/01/19 11:19 This 59-year-old dialysis patient presents with left upper quad abdominal pain started this morning at approximately 0600. He describes it as a gripping pain. He also reports it feels the same way as when he had a tumor on his right kidney. Labs have been completed. CBC is unremarkable chemistry with worsening renal function but that is to be expected he has not had dialysis today. Checks x-ray shows enlarged heart with some vascular congestion. Patient respiratory rate even unlabored O2 sats 11/01/19 11:00 Was consulted regarding patient his complaint. Dr. Mansfield is familiar with patient he apparently evaluated him with another midlevel couple days ago. Dr. Valderrama advises follow-up with Dr. Louis Medrano his cement mason. I then contacted Dr. Louis Medrano. He advised 80 mg IV Lasix with some mag citrate and discharge patient if not having any abdominal pain. 11/01/19 12:36 Patient reports he feels much better. He reports he has had several small bowel movements. He reports mostly gas. Denies pain with palpation of his abdomen. Respiratory rate even unlabored. 02Sat 95%. He was advised of his dialysis appointment tomorrow at 1120. He verbalized understanding to all instructions. Renal Ultrasound 11/01/19 08:44 IMPRESSION: Atrophic left kidney containing multiple cysts status post right nephrectomy. Chest X-Ray 11/01/19 09:42 IMPRESSION: CARDIAC ENLARGEMENT. VASCULAR CONGESTION. KUB X-Ray 11/01/19 09:42 IMPRESSION: NO RADIOGRAPHIC EVIDENCE FOR ACUTE ABDOMINAL DISEASE. Laboratory 11/01/19 11/01/19 11/01/19 08:24 08:24 09:25 WBC 10.0 RBC 3.76 L Hgb 10.5 L Hct 32.0 L MCV 85 MCH 28.1 MCHC 32.9 RDW 21.0 H Plt Count 149 L Lymph % (Auto) 12.8 L [place] % (Auto) 12.2 Eos % (Auto) 0.6 Baso % (Auto) 0.2 Absolute Neuts (auto) 7.5 Absolute Lymphs (auto) 1.3 Absolute Monos (auto) 1.2 Absolute Eos (auto) 0.1 Absolute Basos (auto) 0.0 Seg Neutrophils % 74.2 Sodium 136.9 L Potassium 4.5 Chloride 96 L Carbon Dioxide 27 Anion Gap 14 BUN 47 H Creatinine 10.26 H Est GFR ( Amer) 6 L Est GFR (MDRD) Non-Af 5 L Glucose 120 H Calcium 9.0 Total Bilirubin 0.9 Direct Bilirubin 0.5 H Neonat Total Bilirubin Not Reportable Neonat Direct Bilirubin Not Reportable Neonat Indirect Bili Not Reportable AST 19 ALT 15 Alkaline Phosphatase 78 Total Protein 7.5 Albumin 4.2 Urine Color YELLOW Urine Appearance CLOUDY Urine pH 8.0 Ur Specific [place] 1.011 Urine Protein >=500 H Urine Glucose (UA) 50 H Urine Ketones NEGATIVE Urine Blood NEGATIVE Urine Nitrite NEGATIVE Urine Bilirubin NEGATIVE Urine Urobilinogen NEGATIVE Ur Leukocyte Esterase NEGATIVE Urine WBC (Auto) 5 Urine RBC (Auto) 3 Squamous Epi Cells Auto 1 Urine Mucus (Auto) RARE Urine Ascorbic Acid NEGATIVE 11/01/19 13:53 - Vital Signs Vital signs: Temp Pulse Resp BP Pulse Ox 98.3 F 72 20 157/88 H 95 11/01/19 12:22 11/01/19 12:22 11/01/19 12:22 11/01/19 12:22 11/01/19 12:40 - Laboratory Result Diagrams: 11/01/19 08:24 11/01/19 08:24 Laboratory results interpreted by me: 11/01/19 11/01/19 11/01/19 08:24 08:24 09:25 RBC 3.76 L Hgb 10.5 L Hct 32.0 L RDW 21.0 H Plt Count 149 L Lymph % (Auto) 12.8 L Sodium 136.9 L Chloride 96 L BUN 47 H Creatinine 10.26 H Est GFR ( Amer) 6 L Est GFR (MDRD) Non-Af 5 L Glucose 120 H Direct Bilirubin 0.5 H Urine Protein >=500 H Urine Glucose (UA) 50 H - Diagnostic Test Radiology reviewed: Image reviewed, Reports reviewed - EKG Interpretation by Me EKG shows normal: Sinus rhythm Rate: Normal Rhythm: NSR Additional EKG results interpreted by me: 11/01/19 11:[address] elevation no T wave inversion QTC 470 - Consults jose alejandro Time consulted: 11:09 Reason for consultation: 11/01/19 13:53 dialysis patient. Discharge - Discharge Clinical Impression: Abdominal pain Qualifiers: Abdominal location: left upper quadrant Qualified Code(s): R10.12 - Left upper quadrant pain Condition: Stable Disposition: HOME, SELF-CARE Instructions: Abdominal Pain ([facility]) Additional Instructions: *You have been evaluated for abdominal pain *Follow up with your primary care provider within the next week Follow-up with your dialysis tomorrow. You must be there by 11:00. *Return to ED for worsening condition, changes, needs *Return to ED if not better in 24 hours Forms: Elevated Blood Pressure Referrals: MILIND SALAZAR MD [ACTIVE STAFF] - Follow up as needed Mishel MEDRANO MD [Primary Care Provider] - Follow up in 3-5 days
[2019-11-01 09:53] LABS: APPEARANCE,URINE CLOUDY; BILIRUBIN,URINE NEGATIVE (NEGATIVE); COLOR,URINE YELLOW; GLUCOSE, URINE 50 mg/dL (NEGATIVE); KETONES,URINE NEGATIVE (NEGATIVE); LEUKOCYTE ESTERASE,URINE NEGATIVE (NEGATIVE); NITRITE,URINE NEGATIVE (NEGATIVE); PROTEIN,URINE >=500 mg/dL (NEGATIVE); URINE SPECIFIC GRAVITY 1.011; UROBILINOGEN,URINE NEGATIVE mg/dL (<2.0)
[2019-11-01 09:53] LABS: ABSOLUTE EOSINOPHILS # (AUTO) 0.1 10^3/uL (0.0-0.6); ABSOLUTE LYMPHOCYTES (AUTO) 1.3 10^3/uL (0.5-4.7); ABSOLUTE MONOCYTES (AUTO) 1.2 10^3/uL (0.1-1.4); ABSOLUTE NEUT (AUTO) 7.5 10^3/uL (1.7-8.2); BASOPHILS % (AUTO) 0.2 % (0-2); EOSINOPHILS % (AUTO) 0.6 % (0-6); HEMOGLOBIN 10.5 g/dL (13.5-17.0); LYMPHOCYTES % (AUTO) 12.8 % (13-45); MEAN CORPUSCULAR HEMOGLOBIN 28.1 pg (27.0-33.4); MEAN CORPUSCULAR HGB CONC 32.9 g/dL (32.0-36.0); MEAN CORPUSCULAR VOLUME 85 fl (80-97); MONOCYTES % (AUTO) 12.2 % (3-13); PLATELET COUNT 149 10^3/uL (150-450); RED BLOOD COUNT 3.76 10^6/uL (4.35-5.55); SEGMENTED NEUTROPHILS % (AUTO) 74.2 % (42-78); TOTAL CELLS COUNTED % (AUTO) 100 %
[2019-11-01 10:01] LABS: ALBUMIN 4.2 g/dL (3.5-5.0); ALKALINE PHOSPHATASE 78 U/L (38-126); ANION GAP 14 (5-19); ASPARTATE AMINO TRANSFERASE 19 U/L (17-59); BILIRUBIN,DIRECT 0.5 mg/dL (0.0-0.4); BILIRUBIN,TOTAL 0.9 mg/dL (0.2-1.3); BLOOD UREA NITROGEN 47 mg/dL (7-20); CARBON DIOXIDE 27 mmol/L (22-30); CHLORIDE 96 mmol/L (98-107); GLUCOSE 120 mg/dL (75-110); POTASSIUM 4.5 mmol/L (3.6-5.0); TOTAL PROTEIN 7.5 g/dL (6.3-8.2)
--- NOTE | 2019-11-01 10:02 | RADIOLOGY REPORT (SQ) ---
EXAM DESCRIPTION: [employer] COMPLETED DATE/TIME: 11/01/2019 9:46 am REASON FOR STUDY: left side, hx kidney cancer/tumor (rt nephrectomy) COMPARISON: 05/14/2018 TECHNIQUE: Dynamic and static grayscale images acquired of the kidneys and bladder and recorded on P ACS. Additional selected color Doppler and spectral images recorded. LIMITATIONS: None. FINDINGS: RIGHT KIDNEY: Surgically absent. LEFT KIDNEY: Atrophic. Multiple cysts. No solid masses or hydronephrosis. BLADDER: Decompressed. OTHER FINDINGS: No other significant finding. IMPRESSION: Atrophic left kidney containing multiple cysts status post right nephrectomy. TECHNICAL DOCUMENTATION: JOB ID: [id number] 2010 [employer]- All Rights Reserved Reading location - IP/workstation name: [email or web address]
--- NOTE | 2019-11-01 10:53 | RADIOLOGY REPORT (SQ) ---
EXAM DESCRIPTION: CHEST 2 VIEWS COMPLETED DATE/TIME: 11/01/2019 10:32 am REASON FOR STUDY: SOB COMPARISON: 10/31/2019 NUMBER OF VIEWS: Two views. TECHNIQUE: Frontal and lateral radiographic views of the chest acquired. LIMITATIONS: None. FINDINGS: LUNGS AND PLEURA: No opacities, masses or pneumothorax. No pleural effusion. MEDIASTINUM AND HILAR STRUCTURES: No masses or contour abnormality. HEART AND VASCULAR STRUCTURES: Cardiac enlargement. Vascular congestion. BONES: No acute findings. HARDWARE: None in the chest. OTHER: Left subclavian vascular stent. IMPRESSION: CARDIAC ENLARGEMENT. VASCULAR CONGESTION. TECHNICAL DOCUMENTATION: JOB ID: [id number] 2010 [email or web address]- All Rights Reserved Reading location - IP/workstation name: [email or web address]
--- NOTE | 2019-11-01 10:57 | RADIOLOGY REPORT (SQ) ---
EXAM DESCRIPTION: KUB/ABDOMEN (SINGLE VIEW) COMPLETED DATE/TIME: 11/01/2019 10:32 am REASON FOR STUDY: ABD PAIN COMPARISON: None. NUMBER OF VIEWS: One view. TECHNIQUE: Supine radiographic image of the abdomen acquired. LIMITATIONS: None. FINDINGS: BOWEL GAS PATTERN: Normal bowel gas pattern. No dilated loops. CALCIFICATIONS: No suspicious calcifications. SOFT TISSUES: No gross mass or suggestion of organomegaly. HARDWARE: Clips right lower quadrant. BONES: No acute fracture. No worrisome bone lesions. OTHER: No other significant finding. IMPRESSION: NO RADIOGRAPHIC EVIDENCE FOR ACUTE ABDOMINAL DISEASE. TECHNICAL DOCUMENTATION: JOB ID: [id number] 2010 [employer]- All Rights Reserved Reading location - IP/workstation name: [email or web address]
[2019-11-01] MEDS ORDERED: DOCUSATE SODIUM 100 MG CAPSULE PO ONE (11:08)
[2019-11-01] MEDS ORDERED: MAGNESIUM CITRATE 296 ML BOTTLE PO ONE (11:13)
[2019-11-01] MEDS ORDERED: FUROSEMIDE INJ/PF 40 MG/4 ML SDV IV ONE (11:14)
[2019-11-01 12:24] VITALS: BP 157/88
--- NOTE | 2019-11-01 12:51 | EKG REPORT ---
SEVERITY:- ABNORMAL ECG - SINUS RHYTHM MULTIPLE PREMATURE COMPLEXES, SUPRAVEN PROBABLE LEFT ATRIAL ABNORMALITY LEFT AXIS DEVIATION BORDERLINE T ABNORMALITIES, LATERAL LEADS : Confirmed by: Costa Pryor MD 01-Nov-2019 12:50:21
== END 2019-11-01 12:58 | disposition home or self-care (01) ==
LOC: ER 08:03
DX: R10.12 Left upper quadrant pain (principal); I12.0 Hypertensive chronic kidney disease with stage 5 chronic kidney disease or end stage renal disease; N18.6 End stage renal disease; Z99.2 Dependence on renal dialysis; Z90.5 Acquired absence of kidney; Z88.3 Allergy status to other anti-infective agents; Z85.528 Personal history of other malignant neoplasm of kidney
CPT/HCPCS: 93005; 99285; 96374; 36415; 85025; 80053; 81001; 71046; 74018; 76775; 93010; A9270; J1940; J3490